=== PATIENT | female | born 1960 | race Two or more races ===

== ENCOUNTER 2024-10-16 10:13 | Inpatient (IN) | payer OTHER ==
[~2024-10-16] VITALS: Ht 160 cm; Wt 72.9 kg
--- NOTE | 2024-10-16 10:29 | ED.PDOC ---
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 Patient reports that she had started to experience 8/10 epigastric abdominal pain since this morning, but when getting into her car, she felt sudden palpitations with associated diaphoresis and a syncopal episode. Patient relays that a family member had caught her before she fell, then 911 was called. EMS states that the patient was diaphoretic on route to the ED and her heart rate gradually went down from the 70s to the 40s. Patient denies any chest pain, SOB, dizziness, N/V/D, or fever. Time Seen by MD: 10:24 Reviewed Notes: Nurses Notes, Medical Transcription Notes, Medications, Allergies Allergies: Coded Allergies: Codeine (Verified Allergy, Unknown, 10/16/24) Information Source: Patient, Emergency Med Personnel Mode of Arrival: EMS Severity: Moderate Timing: Hours Duration: Since onset Prehospital treatment: None Onset: At Rest Cardiac Risk Factors: None PE Risk Factors: None Associated Signs and Symptoms: Palpitations, Diaphoresis, Abdominal Pain, Syncope Past Medical History PAST MEDICAL HISTORY: Denies Surgical History: Denies all surgeries MAILING CLERK History: Denies all MAILING CLERK Hx Family History Family History: Reviewed,noncontributory to illness Social History Smoker: Non-Smoker Alcohol: Denies ETOH Use Drugs: Denies Drug Use Lives In: Home Constitutional: denies: chills, diaphoresis, fatigue, fever, malaise, sweats, weakness, others EENTM: denies: blurred vision, double vision, ear bleeding, ear discharge, ear drainage, ear pain, ear ringing, eye pain, eye redness, hearing loss, mouth pain, mouth swelling, nasal discharge, nose bleeding, nose congestion, nose pain, photophobia, tearing, throat pain, throat swelling, voice changes, others Respiratory: denies: cough, hemoptysis, orthopnea, SOB at rest, shortness of breath, SOB with excertion, stridor, wheezing, others Cardiovascular: reports: diaphoresis, palpitations, syncope; denies: chest pain, dizzy spells, Dyspnea on exertion, edema, irregular heart beat, left arm pain, lightheadedness, PND, others Gastrointestinal: reports: abdominal pain; denies: abdomen distended, blood streaked bowels, constipated, diarrhea, dysphagia, difficulty swallowing, hematemesis, melena, nausea, poor appetite, poor fluid intake, rectal bleeding, rectal pain, vomiting, others Genitourinary: denies: abnormal vagina bleeding, burning, dyspareunia, dysuria, flank pain, frequency, hematuria, incontinence, pain, , vagina discharge, urgency, others Neurological: denies: dizziness, fainting, headache, left sided numbness, left sided weakness, numbness, paresthesia, pre-existing deficit, right sided numbne ss, right sided weakness, seizure, speech problems, tingling, tremors, weakness, others Musculoskeletal: denies: back pain, gout, joint pain, joint swelling, muscle pain, muscle stiffness, neck pain, others Integumetry: denies: bruises, change in color, change in hair/nails, dryness, laceration, lesions, lumps, rash, wounds, others Allergic/Immunocompromised: denies: Difficulty Healing, Frequent Infections, Hives, Itching, others Hematologic/Lymphatic: denies: anemia, blood clots, easy bleeding, easy bruising, swollen glands, others Endocrine: denies: excessive hunger, excessive sweating, excessive thirst, excessive urination, flushing, intolerance to cold, intolerance to heat, unexplained weight gain, unexplained weight loss, others Psychiatric: denies: anxiety, bipolar disorder, depression, hopeless, panic disorder, schizophrenia, sleepless, suicidal, others All Other Systems: Reviewed and Negative Physical Exam General Appearance: No Apparent Distress, Normal, Other (Appears uncomfortable) HEENT: Normal ENT Inspection, Pharynx Normal, TMs Normal Neck: Full Range of Motion, Non-Tender, Normal, Normal Inspection Respiratory: Chest Non-Tender, Lungs Clear, No Accessory Muscle Use, No Respiratory Distress, Normal Breath Sounds Cardiovascular: No Edema, No JVD, No Murmur, No Gallop, Normal Peripheral Pulses, Other (Bradycardic) Breast Exam: Deferred Gastrointestinal: No Organomegaly, Non Tender, No Pulsatile Mass, Normal Bowel Sounds, Soft Genitalia: Deferred Pelvic: Deferred Rectal: Deferred Extremities: No calf tenderness, Normal capillary refill, Normal inspection, Normal range of motion, Non-tender, No pedal edema Musculoskeletal : Apperance: Normal Neurologic: Alert, letter of credit clerk II-XII nml as Tested, No Motor Deficits, Normal Affect, Normal Mood, No Sensory Deficits Cerebellar Function: Normal Reflexes: Normal Skin: Diaphoresis, Normal Color, Warm Lymphatic: No Adenopathy Was a procedure done? Was a procedure done?: No CP Differential Dx Differential Diagnosis: A-Flutter, Atrial Dysrhythmia, Electrolyte Disorder, MAT, NE, PAC's Differential Diagnosis: CHF, HTN Essential, HTN Accelerated Differential Diagnosis: Gastritis, Myocardial Infarction, Pericarditis X-Ray, Labs, Meds, VS Vital Signs Date Time Temp Pulse Resp B/P (MAP) Pulse Ox O2 Delivery O2 Flow Rate FiO2 10/16/24 11:14 64 10/16/24 10:19 97.9 59 18 118/54 (75) 96 97.9 10/16/24 10:14 46 Lab Test 10/16/24 13:02 10/16/24 12:05 10/16/24 11:39 Range/Units Troponin I High Sensitivity Pending 4 </=34 ng/L Urine Color Colorless Yellow Urine Clarity Clear Clear Urine pH 8.0 5.0-9.0 Urine Specific [place] 1.009 1.001-1.035 Urine Protein Negative Negative Urine Ketones Negative Negative Urine Blood Negative Negative /uL Urine Nitrite Negative Negative Urine Bilirubin Negative Negative Urine Urobilinogen Normal Negative mg/dL Urine Leukocyte Esterase Trace Negative /uL Urine RBC 1 0 - 4 /hpf Urine Microscopic WBC 2 0-5 /HPF Urine Squamous Epithelial Cells Few <5 /hpf Urine Bacteria None seen None Seen /hpf Urine Glucose Normal Normal mg/dL White Blood Count 9.2 4.4-10.8 10^3/uL Red Blood Count 4.29 4.0-5.20 10^6/uL Hemoglobin 12.6 12.2-16.2 g/dL Hematocrit 36.5 36.0-46.0 % Mean Corpuscular Volume 85.1 80.0-100.0 fL Mean Corpuscular Hemoglobin 29.4 28.0-32.0 pg Mean Corpuscular Hemoglobin Concent 34.5 32.0-36.0 g/dL Red Cell Distribution Width 13.5 11.8-14.3 % Platelet Count 283 140-450 10^3/uL Mean Platelet Volume 8.0 6.9-10.8 fL Neutrophils (%) (Auto) 78.5 37.0-80.0 % Lymphocytes (%) (Auto) 14.2 10.0-50.0 % Monocytes (%) (Auto) 6.5 0.0-12.0 % Eosinophils (%) (Auto) 0.5 0.0-7.0 % Basophils (%) (Auto) 0.3 0.0-2.0 % Neutrophils # (Auto) 7.2 1.6-8.6 10 ^3/uL Lymphocytes # (Auto) 1.3 0.4-5.4 10 ^3/uL Monocytes # (Auto) 0.6 0-1.3 10 ^3/uL Eosinophils # (Auto) 0.1 0-0.8 10 ^3/uL Basophils # (Auto) 0 0-0.2 10 ^3/uL Nucleated Red Blood Cells 0.2 % Sodium Level 147 H 136-145 mmol/L Potassium Level 3.5 3.5-5.1 mmol/L Chloride Level 107 98-107 mmol/L Carbon Dioxide Level 30 20-31 mmol/L Anion Gap 10 5-15 Blood Urea Nitrogen 17 9-23 mg/dL Creatinine 0.96 0.550-1.02 mg/dL Glomerular Filtration Rate Calc 66 >90 mL/min BUN/Creatinine Ratio 17.7 10.0-20.0 Serum Glucose 102 74-106 mg/dL Lactic Acid Level 1.3 0.4-2.0 mmol/L Calcium Level 9.7 8.7-10.4 mg/dL Current Medications Medications (Trade) Dose Ordered Sig/Anna Route Start Time Stop Time Status Last Admin Sodium Chloride 1,000 ml @ 1,000 mls/hr Q1H ONCE IV 10/16/24 10:30 10/16/24 11:29 DC 10/16/24 10:40 Time of 1ST Reevaluation: 11:19 Reevaluation 1ST: Unchanged Patient Education/Counseling: Diagnosis, Treatment Family Education/Counseling: No Family Present Additional Information Previous visits reviewed: None The following tests were ordered, and results were reviewed by me: Additional Information was gathered from interviewing the following independent historians: EMS I reviewed and agreed with the following test results read by other providers: None I discussed treatment and results with medical personnel and: patient Comprehensive systems review obtained and negative except for what is stated in the HPI. SEPSIS Sepsis Screen Physician Orders Chest Portable (10/16/24 10:17) Head Without Contrast (10/16/24 10:17) Blood Culture (10/16/24 10:17) Troponin-I Hs (10/16/24 11:17) Troponin-I Hs (10/16/24 13:17) Electrocardigram (10/16/24 11:17) Electrocardigram (10/16/24 13:17) Vital Signs Date Time Temp Pulse Resp B/P (MAP) Pulse Ox O2 Delivery O2 Flow Rate FiO2 10/16/24 11:14 64 10/16/24 10:19 97.9 59 18 118/54 (75) 96 97.9 10/16/24 10:14 46 Laboratory Tests Test 10/16/24 11:39 Lactic Acid Level 1.3 mmol/L (0.4-2.0) White Blood Count 9.2 10^3/uL (4.4-10.8) Medications Medications Dose Ordered Sig/Anna Route Start Time Stop Time Status Last Admin Dose Admin Sodium Chloride 1,000 ml @ 1,000 mls/hr Q1H ONCE IV 10/16/24 10:30 10/16/24 11:29 DC 10/16/24 10:40 Departure 1 Departure Time of Disposition: 13:16 (Patient presented with syncope today and should be admitted. Data: 1. I ordered and reviewed the result of at least 3 labs including a CBC, BMP, and troponin. 2. I independently interpreted the following tests: EKG which shows a sinus bradycardia and a chest x-ray which shows benign chest and a CT head which shows benign brain.Risk:This patient has a high risk of morbidity due to further diagnostic testing or treatment and may suffer from an acute cardiac, neurologic, or infectious disorder. Rationale: Patient should be admitted to the hospital for further management.) Impression: Primary Impression: Syncope and collapse Additional Impressions: Acute chest pain Shortness of breath Disposition: ADMITTED INPATIENT Admit to: Med Surg Condition: Guarded Critical Care Note Critical Care Time?: Yes Critical care comment: Symptomatic bradycardia Authorized and Performed by: Emely Mooney MD Total critical care time: Approximately 39 minutes Due to a high probability of clinically significant, life threatening deterioration, the patient required my highest level of preparedness to intervene emergently and I personally spent this critical care time directly and personally managing the patient. This critical care time included obtaining a history; examining the patient; pulse oximetry; ordering and review of studies; arranging urgent treatment with development of a management plan; evaluation of patient's response to treatment; frequent reassessment; and, discussions with other providers. This critical care time was performed to assess and manage the high probability of imminent, life-threatening deterioration that could result in multi-organ failure. It was exclusive of separately billable procedures and treating other patients and teaching time. Please see my other sections and the rest of the note for further information on patient assessment and treatment. Stability Stability form required: No Heart Score Heart Score: Heart Score Response (Comments) Value History Highly Suspicious 2 EKG Repolarization Disturb 1 Age >65 2 Risk Factors 1 or 2 risk factors 1 Troponin Normal limit 0 Total 6 I personally scribed for EMELY MOONEY MD ([email or web address]) on 10/16/24 at 10:29. Electronically submitted by Maurilio Betancourt ([email or web address]). EMELY MOONEY MD Oct 16, 2024 10:29
[2024-10-16 10:33] VITALS: PULSE 77; RESP 16; O2SAT 97
[2024-10-16] MEDS: SODIUM CHLORIDE 0.9% 1,000 ML IV ONE (10:40)
--- NOTE | 2024-10-16 10:59 | DVH ---
CHEST RADIOGRAPH Indication: syncope Technique: Single frontal view of the chest was obtained COMPARISON: None FINDINGS: Lines and Tubes: None Lungs: Clear Pleura: No effusion. No pneumothorax. Cardiomediastinal contours: Unremarkable Bones: Unremarkable IMPRESSION: No acute disease.
--- NOTE | 2024-10-16 11:01 | DVH ---
CT HEAD WITHOUT CONTRAST INDICATION: syncope EXAM DATE: 10/16/2024 10:32 AM COMPARISON: None RADIATION DOSE: CTDIvol: 56 mGy, DLP: 1006 mGy*cm PROCEDURE: CT scans of the head were obtained from the vertex to the skull base. Sagittal and coronal reconstructions were provided. All CT scans at this medical facility are performed using dose modulation techniques as appropriate t o a performed exam including the following: Automated exposure control was utilized; adjustment of th e MA and/or KV according to patient size; and use of iterative reconstruction technique. FINDINGS: There is sulcal and ventricular prominence. The brainshows normal morphology and ignacio-whi te matter differentiation, without intracranial hemorrhage, extra-axial fluid collection, mass effect or acute large vessel infarct. The ventricles are normal in size. The basal cisterns are patent. The skull and visible facial bones are intact. The paranasal sinuses, mastoid air cells and middle ear c avities are well-aerated. The soft tissues of the scalp are unremarkable. IMPRESSION: No acute intracranial abnormality.
--- NOTE | 2024-10-16 11:15 | ECG ---
[facility] Test Date: 2024-10-16 Test Time: 11:14:40 Pat Name: FORTUNATO RENE Department: ER Room: [address] [place] [address] Gender: F Director Of Accounting: GP : 1960 Requested By: EMELY SAAVEDRA Order Number: [id number] Reading MD: Melvin Gunter Measurements Intervals [place] Rate: 64 P: 46 GA: 151 QRS: 25 QRSD: 104 T: 65 QT: 420 QTc: 434 Interpretive Statements Sinus rhythm Electronically Signed On 10-16-2024 21:19:45 PDT by Melvin Gunter Please click the below link to view image of tracing.
[2024-10-16 12:14] LABS: Basophils # (auto) 0 10 ^3/uL (0-0.2); Basophils % (auto) 0.3 % (0.0-2.0); Eosinophils # (auto) 0.1 10 ^3/uL (0-0.8); Eosinophils % (auto) 0.5 % (0.0-7.0); Hematocrit 36.5 % (36.0-46.0); Hemoglobin 12.6 g/dL (12.2-16.2); Lymphocytes # (auto) 1.3 10 ^3/uL (0.4-5.4); Lymphocytes % (auto) 14.2 % (10.0-50.0); Mean Corpuscular Hemoglobin 29.4 pg (28.0-32.0); Mean Corpuscular Hgb Conc. 34.5 g/dL (32.0-36.0); Mean Corpuscular Volume 85.1 fL (80.0-100.0); Monocytes # (auto) 0.6 10 ^3/uL (0-1.3); Monocytes % (auto) 6.5 % (0.0-12.0); Neutrophils # (auto) 7.2 10 ^3/uL (1.6-8.6); Neutrophils % (auto) 78.5 % (37.0-80.0); Nucleated Red Blood Cells % 0.2 %; Platelet Count (auto) 283 10^3/uL (140-450); Red Blood Cells 4.29 10^6/uL (4.0-5.20); Red Cell Distribution Width 13.5 % (11.8-14.3); White Blood Cell 9.2 10^3/uL (4.4-10.8)
[2024-10-16 12:30] LABS: Anion Gap 10 (5-15)
[2024-10-16 12:31] LABS: Carbon Dioxide 30 mmol/L (20-31); Chloride 107 mmol/L (98-107); Potassium 3.5 mmol/L (3.5-5.1); Sodium 147 mmol/L (136-145)
[2024-10-16 12:34] LABS: Urine Bacteria None Seen /hpf (None Seen)
[2024-10-16 12:45] LABS: BUN/Creatinine Ratio 17.7 (10.0-20.0); Blood Urea Nitrogen 17 mg/dL (9-23); Calcium 9.7 mg/dL (8.7-10.4); Glucose 102 mg/dL (74-106)
[2024-10-16 12:55] LABS: Urine Blood Negative /uL (Negative); Urine Clarity Clear (Clear); Urine Color Colorless (Yellow); Urine Protein, UAD Negative (Negative); Urine Specific Gravity 1.009 (1.001-1.035); Urine Squamous Epithelial Cell FEW /hpf (<5); Urine Urobilinogen Normal (Negative); Urine WBC 2 /HPF (0-5)
[2024-10-16] MEDS ORDERED: DEXTROSE (50%) 50ML SYRG IV PRN (14:30)
[2024-10-16] MEDS ORDERED: MORPHINE SULFATE INJ 2 MG/ml SYRG IV PRN (14:30)
[2024-10-16] MEDS ORDERED: NITROGLYCERIN 0.4 MG SL TAB SL PRN (14:30)
[2024-10-16] MEDS ORDERED: ACETAMINOPHEN 325 MG TAB PO PRN ×2 (14:30→17:00)
[2024-10-16] MEDS ORDERED: ONDANSETRON HCL 4 MG/2 ML VIAL IV PRN (14:30)
[2024-10-16] MEDS ORDERED: NIFE1TAB30 PO (14:55)
--- NOTE | 2024-10-16 14:59 | DVHHP2 ---
History of Present Illness Reason for Visit: Syncope History of Present Illness Dahiana Shaw is a 64-year-old female with past medical history of hypertension, diabetes type 2, ulcers, cholecystectomy, and x3 who presents to the ED with syncope. Patient also reports of epigastric abdominal pain for 6 months. She also endorses that she recently traveled to [facility] on October 01 this year. Etelvina daughter at the bedside. Patient's daughter states that her mom and a neighbor were outside in the front yard when she told her neighbor that she was about to fall. She states that she fell and hit the right back side of her head on the floor. She recalls waking up and not knowing what happened. She also states that she saw her primary last month and was supposed to go with this Saturday to get results for her blood work. Patient also states that she walks without any DMEs. She denies any recent sick contacts, recent ingestion of spoiled food, chest pain, shortness of breath, fever, chills, dizziness, nausea, vomiting, or diarrhea. Cardiovascular: HTN GI: Other (Ulcers) Endocrine: Diabetes Past Surgical History: Cholecystectomy, Family History: None Smoke: No ALCOHOL: none Drugs: None Lives: with Family Domestic Violence: Neg Review of Systems Constitutional: Yes: Other (Syncope) Gastrointestinal: Abdominal Pain Allergies: Coded Allergies: Codeine (Verified Allergy, Unknown, 10/16/24) Exam Vital Signs Vital Signs Date Time Temp Pulse Resp B/P (MAP) Pulse Ox O2 Delivery O2 Flow Rate FiO2 10/16/24 13:24 82 10/16/24 10:33 98.3 15 129/54 (79) 98 98.3 General Appearance: Alert, Oriented X3, Cooperative, No acute distress HEENT: Atraumatic, PERRLA, EOMI, Mucous membr. moist/pink Respiratory: Clear to auscultation, Normal air movement Cardiovascular: Normal S1, Normal S2, No murmurs Abdominal: Normal bowel sounds, Soft Extremities: No clubbing, No cyanosis, No edema, Normal pulses Skin: No significant lesion Neuro: Normal speech, Strength at 5/5 X4 ext, Normal tone, Sensation intact Psych/Mental Status: Mental status NL, Mood NL Labs/Xrays Labs Test 10/16/24 13:02 10/16/24 12:05 10/16/24 11:39 Range/Units Troponin I High Sensitivity 4 </=34 ng/L Urine Color Colorless Yellow Urine Clarity Clear Clear Urine pH 8.0 5.0-9.0 Urine Specific [place] 1.009 1.001-1.035 Urine Protein Negative Negative Urine Ketones Negative Negative Urine Blood Negative Negative /uL Urine Nitrite Negative Negative Urine Bilirubin Negative Negative Urine Urobilinogen Normal Negative mg/dL Urine Leukocyte Esterase Trace Negative /uL Urine RBC 1 0 - 4 /hpf Urine Microscopic WBC 2 0-5 /HPF Urine Squamous Epithelial Cells Few <5 /hpf Urine Bacteria None seen None Seen /hpf Urine Glucose Normal Normal mg/dL White Blood Count 9.2 4.4-10.8 10^3/uL Red Blood Count 4.29 4.0-5.20 10^6/uL Hemoglobin 12.6 12.2-16.2 g/dL Hematocrit 36.5 36.0-46.0 % Mean Corpuscular Volume 85.1 80.0-100.0 fL Mean Corpuscular Hemoglobin 29.4 28.0-32.0 pg Mean Corpuscular Hemoglobin Concent 34.5 32.0-36.0 g/dL Red Cell Distribution Width 13.5 11.8-14.3 % Platelet Count 283 140-450 10^3/uL Mean Platelet Volume 8.0 6.9-10.8 fL Neutrophils (%) (Auto) 78.5 37.0-80.0 % Lymphocytes (%) (Auto) 14.2 10.0-50.0 % Monocytes (%) (Auto) 6.5 0.0-12.0 % Eosinophils (%) (Auto) 0.5 0.0-7.0 % Basophils (%) (Auto) 0.3 0.0-2.0 % Neutrophils # (Auto) 7.2 1.6-8.6 10 ^3/uL Lymphocytes # (Auto) 1.3 0.4-5.4 10 ^3/uL Monocytes # (Auto) 0.6 0-1.3 10 ^3/uL Eosinophils # (Auto) 0.1 0-0.8 10 ^3/uL Basophils # (Auto) 0 0-0.2 10 ^3/uL Nucleated Red Blood Cells 0.2 % Sodium Level 147 H 136-145 mmol/L Potassium Level 3.5 3.5-5.1 mmol/L Chloride Level 107 98-107 mmol/L Carbon Dioxide Level 30 20-31 mmol/L Anion Gap 10 5-15 Blood Urea Nitrogen 17 9-23 mg/dL Creatinine 0.96 0.550-1.02 mg/dL Glomerular Filtration Rate Calc 66 >90 mL/min BUN/Creatinine Ratio 17.7 10.0-20.0 Serum Glucose 102 74-106 mg/dL Lactic Acid Level 1.3 0.4-2.0 mmol/L Calcium Level 9.7 8.7-10.4 mg/dL EXAM: CT Abdomen and Pelvis Without Intravenous Contrast CLINICAL INDICATION: abd pain TECHNIQUE: Axial computed tomography images of the abdomen and pelvis without intravenous contrast. This CT exam was performed using one or more of the following dose reduction techniques: automated exposure control, adjustment of the mA and/or kV according to patient size, and/or use of iterative reconstruction technique. CONTRAST: RADIATION DOSE: CTDIvol = 13.97 mGy, DLP = 710.81 mGy-cm COMPARISON: None FINDINGS: LUNG BASES: Unremarkable. No mass. No consolidation. MEDIASTINUM: Small esophageal hiatal hernia. ABDOMEN: LIVER: Enlarged fatty liver. GALLBLADDER AND BILE DUCTS: Unremarkable. No calcified stones. No ductal dilation. PANCREAS: Unremarkable. No ductal dilation. SPLEEN: Unremarkable. No splenomegaly. ADRENALS: Unremarkable. No mass. KIDNEYS AND URETERS: No renal obstruction. STOMACH AND BOWEL: Fecal retention in the colon consistent with constipation. No obstruction. No mucosal thickening. PELVIS: APPENDIX: Normal appendix. BLADDER: Unremarkable. No stones. REPRODUCTIVE: Probable calcified uterine fibroid. ABDOMEN and PELVIS: INTRAPERITONEAL SPACE: Unremarkable. No free air. No significant fluid collection. BONES/JOINTS: Multilevel endplate degenerative changes and disc disease of the visualized spine. No acute fracture. No dislocation. SOFT TISSUES: Unremarkable. VASCULATURE: Unremarkable. No abdominal aortic aneurysm. LYMPH NODES: Unremarkable. No enlarged lymph nodes. OTHER FINDINGS: . IMPRESSION: 1. Normal appendix. 2. Small esophageal hiatal hernia. 3. Fecal retention in the colon consistent with constipation. CT HEAD WITHOUT CONTRAST INDICATION: syncope EXAM DATE: 10/16/2024 10:32 AM COMPARISON: None RADIATION DOSE: CTDIvol: 56 mGy, DLP: 1006 mGy*cm PROCEDURE: CT scans of the head were obtained from the vertex to the skull base. Sagittal and coronal reconstructions were provided. All CT scans at this medical facility are performed using dose modulation techniques as appropriate to a performed exam including the following: Automated exposure control was utilized; adjustment of the MA and/or KV according to patient size; and use of iterative reconstruction technique. FINDINGS: There is sulcal and ventricular prominence. The brainshows normal morphology and ignacio-white matter differentiation, without intracranial hemo rrhage, extra-axial fluid collection, mass effect or acute large vessel infarct. The ventricles are normal in size. The basal cisterns are patent. The skull and visible facial bones are intact. The paranasal sinuses, mastoid air cells and middle ear cavities are well-aerated. The soft tissues of the scalp are unremarkable. IMPRESSION: No acute intracranial abnormality. Assessment/Plan Assessment/Plan Assessment UTI Autonomic imbalance Abdominal pain x6 months Hypernatremia Small esophageal hiatal hernia Constipation History of hypertension History of diabetes type 2 History of gastric ulcers Plan Admit to [facility] Influenza test IV antibiotics-ceftriaxone NS 1 L given ED EKG Troponin noted negative x2 Blood cultures CT head noted Lactic level Chest x-ray noted UA Hemoglobin A1c ISS and Accu-Cheks CT abdomen and pelvis noted Orthostatics Ultrasound carotid Echo ordered UDS Bowel regimen Diet Home medications reconciled DVT prophylaxis-SCDs PUD prophylaxis-PPIs Discussed plan of care with patient, patient's daughter, and nurse Rounding hospitalist to consider Cardiology consult Plan discussed with: Patient, Daughter My Orders Orders - VINAYAK CHILDS Procedure Category Date Status Time Orthostatic Vital ORDERS 10/16/24 Verified Signs 14:16 Carotid Duplx W Color US 10/16/24 Verified DOP 14:16 Echo 2d Mode Cardiac US 10/16/24 Verified DOP 14:16 Drug Screen LAB 10/16/24 Verified 14:16 Admit ADMIT 10/16/24 Verified 14:16 Allergies ELIZABETH 10/16/24 Verified 14:16 Code Status CODE 10/16/24 Verified 14:16 Ondansetron Hcl PHA 10/16/24 Verified (Zofran) 14:30 Complete Blood Count LAB 10/17/24 Verified 04:00 Comprehensive LAB 10/17/24 Verified Metabolic Panel 04:00 Cardiac DIET 10/16/24 Verified Diet-2gna,Lofat,Lochol Dinner Acetaminophen Tablet PHA 10/16/24 Verified (Tylenol Tablet) 14:30 Sequential ELIZABETH 10/16/24 Verified Compression Device Nitroglycerin PHA 10/16/24 Verified Sublingual (Ntrostat 14:30 Morphine Sulfate PHA 10/16/24 Verified Injection 14:30 Stat Ekg For Chest [facility] 10/16/24 Verified Pain 14:16 Notify Md Of Changes [facility] 10/16/24 Verified From Base 14:16 Campus Supervisor For [facility] 10/16/24 Verified 24 Hours 14:16 Emergency Dysrhythmia [facility] 10/16/24 Verified Protocol 14:16 Rhythm Strips Once [facility] 10/16/24 Verified Every Shift 14:16 Oxygen By Nasal RT 10/16/24 Verified Cannula 14:16 Ceftriaxone Ivpb PHA 10/16/24 Verified Rocephin 14:30 Rapid Influenza A&B LAB 10/16/24 Verified 14:16 Ct Ab Pel Wo Con-No CT 10/16/24 Verified Oral Or Iv 14:16 Hemoglobin A1c LAB 10/16/24 Verified 14:16 Glucose Blood PHA 10/16/24 Verified (Accu-Chek Comfort 17:00 Mild Sliding Scale PHA 10/16/24 Verified 17:00 Dextrose 50% Syringe PHA 10/16/24 Verified 14:30 Date of Service: Oct 16, 2024 Billing Provider: VINAYAK CHILDS Common Visit Codes: [id number] INP/OBS CARE (HIGH) VINAYAK CHILDS COUNTER SUPPLY WORKER Oct 16, 2024 14:59
--- NOTE | 2024-10-16 15:33 | DVH ---
EXAM: CT Abdomen and Pelvis Without Intravenous Contrast CLINICAL INDICATION: abd pain TECHNIQUE: Axial computed tomography images of the abdomen and pelvis without intravenous contrast. This CT exam was performed using one or more of the following dose reduction techniques: automated exposure control, adjustment of the mA and/or kV according to patient size, and/or use of iterative r econstruction technique. CONTRAST: RADIATION DOSE: CTDIvol = 13.97 mGy, DLP = 710.81 mGy-cm COMPARISON: None FINDINGS: LUNG BASES: Unremarkable. No mass. No consolidation. MEDIASTINUM: Small esophageal hiatal hernia. ABDOMEN: LIVER: Enlarged fatty liver. GALLBLADDER AND BILE DUCTS: Unremarkable. No calcified stones. No ductal dilation. PANCREAS: Unremarkable. No ductal dilation. SPLEEN: Unremarkable. No splenomegaly. ADRENALS: Unremarkable. No mass. KIDNEYS AND URETERS: No renal obstruction. STOMACH AND BOWEL: Fecal retention in the colon consistent with constipation. No obstruction. No mucosal thickening. PELVIS: APPENDIX: Normal appendix. BLADDER: Unremarkable. No stones. REPRODUCTIVE: Probable calcified uterine fibroid. ABDOMEN and PELVIS: INTRAPERITONEAL SPACE: Unremarkable. No free air. No significant fluid collection. BONES/JOINTS: Multilevel endplate degenerative changes and disc disease of the visualized spine. N o acute fracture. No dislocation. SOFT TISSUES: Unremarkable. VASCULATURE: Unremarkable. No abdominal aortic aneurysm. LYMPH NODES: Unremarkable. No enlarged lymph nodes. OTHER FINDINGS: . IMPRESSION: 1. Normal appendix. 2. Small esophageal hiatal hernia. 3. Fecal retention in the colon consistent with constipation.
[2024-10-16] MEDS ORDERED: IBUPROFEN 600 MG TAB PO PRN (16:00)
[2024-10-16] MEDS ORDERED: IBUPROFEN 800 MG TAB PO PRN (16:00)
[2024-10-16] MEDS ORDERED: IBUPROFEN 400 MG TAB PO PRN (16:00)
[2024-10-16 16:39] LABS: Amphetamine Screen, Urine Neg (NEGATIVE); Barbiturate Scree,Urine Neg (NEGATIVE); Benzodiazephine Screen, Urine Neg (NEGATIVE); Cannabinoid Screen, Urine Neg (NEGATIVE); Cocaine Screen, Urine Neg (NEGATIVE); Opiate Scree,Urine Neg (NEGATIVE); Phencyclidine Screen, Urine Neg (NEGATIVE)
--- NOTE | 2024-10-16 16:43 | DVH ---
Carotid Duplex Date: 10/16/2024 04:16 PM Clinical History: syncope Comparison: None Technique: Duplex Doppler evaluation of the extracranial carotid and vertebral arteries including col or Doppler and spectral/pulsed waveform analysis was performed. Findings: RIGHT SIDE: The peak systolic velocities are 8 cm/s in the distal CCA and 135 cm/s in the proximal ICA.The ICA/CC A ratio is less than 2. The external carotid artery is patent with peak systolic velocity of 7 cm/s proximally. There is appropriate antegrade flow in the right vertebral artery. LEFT SIDE: The peak systolic velocities are 82 cm/s in the distal CCA and 107 cm/s in the proximal ICA.. The ICA /CCA ratio is less than 2. The external carotid artery is patent with peak systolic velocity of 111 cm/s proximally. There is appropriate antegrade flow in the left vertebral artery. IMPRESSION: 1. No hemodynamically significant stenosis noted in the right carotid system. 2. No hemodynamically significant stenosis noted in the left carotid system. 3. Reference: Radiology 2003; 229:[id number] HS:Y
[2024-10-16 16:51] LABS: Rapid Influenza A Negative (Negative); Rapid Influenza B Negative (Negative)
[2024-10-16] MEDS: InsuLIN REG 1unit/0.01ml Soln (100units/ml) SC SCH (17:00)
[2024-10-16] MEDS: cefTRIAXone 1GM/50ML D5W 50 ML IV SCH (17:15)
[2024-10-16] MEDS: PANTOPRAZOLE 40 MG/10 ML VIAL INJ IV SCH (17:15)
[2024-10-16] MEDS: ACCU-CHEK COMFORT CURVE STRIP VI SCH (17:29)
--- NOTE | 2024-10-16 19:17 | ECG ---
[facility] Test Date: 2024-10-16 Test Time: 13:24:01 Pat Name: FORTUNATO RENE Department: ED Room: [address] [place] [address] A Gender: F [employer] Production Technician: josephien : 1960 Requested By: EMELY SAAVEDRA Order Number: [id number] Reading MD: Melvin Gunter Measurements Intervals [place] Rate: 82 P: 66 MT: 137 QRS: 35 QRSD: 111 T: 83 QT: 385 QTc: 450 Interpretive Statements Sinus rhythm Ventricular premature complex Borderline T wave abnormalities Electronically Signed On 10-16-2024 21:20:07 PDT by Melvin Gunter Please click the below link to view image of tracing.
--- NOTE | 2024-10-16 20:18 | DVHSR ---
APPROVED REPORT EXAM: Two-dimensional and M-mode echocardiogram with Doppler and color Doppler. Blood Pressure: 129/54 mmHg INDICATION Syncope RISK FACTORS Obesity: Height: 5'3, Weight: 165 DIMENSIONS LVDd3.6 (3.8-5.7cm)LA (2D)3.4 (1.9-4.0cm)Aortic Root3.1 (2.0-3.7cm) LVDs2.3 (2.5-4.0cm)LA (MM) (1.9-4.0cm)Aortic Cusp Exc1.6 (1.5-2.0cm) EF (%) 60.0 (55-70%)Rt. Atrium3.6 (1.9-4.0cm)Asc. Aorta cm IVSd1.1 (0.7-1.1cm)RV (D) (1.8-2.4cm) PWd1.0 (0.7-1.1cm) Mitral Valve MitralMitral Stenosis E wave1.04m/sMV Mean GR.mmHg A wave0.96m/sMV Peak GR.93mmHg E/A ratio1.12D MVAcm2 DECEL [id number] 1/2 Timems Aortic Valve Aortic ValveAortic Stenosis V11.21m/Janet Mean GR.4mmHg V21.39m/Janet Peak GR.8mmHg LVOT Diameter2.0 (1.8-2.4cm)Doppler AVA2.73cm2 Pulmonic Valve V20.98m/s Tricuspid Valve TR Velocity2.59m/s [id number] Other Information Quality : Technically LimitedRhythm : Technically limited study due to patient position. Conclusion LVEF 55-60%, mild lvh. mild diastolic dysfunction No significant valve disease
[2024-10-16] MEDS: SENNA 8.6 MG TAB PO SCH (21:49)
[2024-10-16 23:56] VITALS: BP 161/71; PULSE 68; RESP 17; TEMP 98.4; O2SAT 95
[2024-10-17] VITALS (8 sets, daily range): BP systolic 119–161; BP diastolic 57–86; PULSE 50–68; RESP 16–20; TEMP 97.1–99.4; O2SAT 95–99
[2024-10-17 06:51] LABS: Basophils # (auto) 0 10 ^3/uL (0-0.2); Basophils % (auto) 0.5 % (0.0-2.0); Eosinophils # (auto) 0.1 10 ^3/uL (0-0.8); Eosinophils % (auto) 1.5 % (0.0-7.0); Hematocrit 38.1 % (36.0-46.0); Hemoglobin 13.2 g/dL (12.2-16.2); Lymphocytes # (auto) 2.2 10 ^3/uL (0.4-5.4); Lymphocytes % (auto) 34.6 % (10.0-50.0); Mean Corpuscular Hemoglobin 29.4 pg (28.0-32.0); Mean Corpuscular Hgb Conc. 34.5 g/dL (32.0-36.0); Mean Corpuscular Volume 85.3 fL (80.0-100.0); Monocytes # (auto) 0.5 10 ^3/uL (0-1.3); Monocytes % (auto) 8.5 % (0.0-12.0); Neutrophils # (auto) 3.5 10 ^3/uL (1.6-8.6); Neutrophils % (auto) 54.9 % (37.0-80.0); Platelet Count (auto) 297 10^3/uL (140-450); Red Blood Cells 4.47 10^6/uL (4.0-5.20); Red Cell Distribution Width 13.4 % (11.8-14.3); White Blood Cell 6.3 10^3/uL (4.4-10.8)
[2024-10-17 07:00] LABS: Albumin 4.4 g/dL (3.2-4.8); Anion Gap 10 (5-15); BUN/Creatinine Ratio 22.2 (10.0-20.0); Blood Urea Nitrogen 18 mg/dL (9-23); Calcium 9.6 mg/dL (8.7-10.4); Carbon Dioxide 28 mmol/L (20-31); Chloride 105 mmol/L (98-107); Glucose 84 mg/dL (74-106); Sodium 143 mmol/L (136-145); Total Protein 7.1 g/dL (5.7-8.2)
[2024-10-17 07:01] LABS: Alanine Aminotransferase 236 U/L (7-40); Alkaline Phosphatase 136 U/L (46-116); Aspartate Aminotransferase 211 U/L (<34); Bilirubin, Total 0.7 mg/dL (0.2-1.0); Potassium 3.2 mmol/L (3.5-5.1)
[2024-10-17] MEDS ORDERED: PATIENTS OWN MEDICATION (Nifedipine (Nifedipine Er) 1 TAB) PO SCH (10:00)
[2024-10-17] MEDS: POLYETHYLENE GLYCOL 17 GM PWDR PO SCH (10:49)
[2024-10-17] MEDS: NIFEdipine ER 30 MG TAB PO SCH (10:57)
[2024-10-17] MEDS: hydroCHLOROthiazide 25 MG TAB PO SCH (10:58)
[2024-10-17] MEDS: LOSARTAN POTASSIUM 50 MG TAB PO SCH (10:58)
--- NOTE | 2024-10-17 13:09 | DVHPN2 ---
Reviewed: Care Plan, H&P, Labs, Medications, Previous Orders, Radiology Changes from previous H/P or p: No Changes Gastrointestinal: Abdominal Pain Objective Vitals Vital Signs Date Time Temp Pulse Resp B/P (MAP) Pulse Ox O2 Delivery O2 Flow Rate FiO2 10/17/24 10:58 159/75 10/17/24 09:00 97.1 50 17 98 97.1 10/16/24 23:56 Room Air* 0 21 Intake/Output Intake and Output 10/17/24 07:00 Intake Total 1000 ml Balance 1000 ml Intake Oral 0 ml IV Total 1000 ml Medications Current Medications Medications Dose Ordered Sig/Anna Route Start Time Stop Time Status Last Admin Dose Admin Ondansetron HCl 4 mg Q4HP PRN IV 10/16/24 14:30 Nitroglycerin 0.4 mg Q5MINP PRN SL 10/16/24 14:30 Ceftriaxone Sodium 50 ml @ 100 mls/hr DAILY@09 IV 10/16/24 14:30 10/17/24 10:49 100 MLS/HR Diagnostic Test (Pha) 1 strip ACHS 10/16/24 17:00 10/17/24 11:30 1 STRIP Insulin Human Regular ACHS SC 10/16/24 17:00 Dextrose 50 ml UD PRN IV 10/16/24 14:30 Losartan Potassium 100 mg DAILY PO 10/17/24 10:00 10/17/24 10:58 100 MG Hydrochlorothiazide 12.5 mg DAILY PO 10/17/24 10:00 10/17/24 10:58 12.5 MG Pantoprazole Sodium 40 mg DAILY IV 10/16/24 15:00 10/17/24 10:49 40 MG Polyethylene Glycol 17 gm DAILY PO 10/17/24 10:00 10/17/24 10:49 17 GM Sennosides 8.6 mg HS PO 10/16/24 22:00 10/16/24 21:49 8.6 MG Patient Own Medication 1 tab DAILY PO 10/17/24 10:00 UNV Nifedipine 60 mg DAILY PO 10/17/24 10:00 10/17/24 10:57 60 MG Acetaminophen 650 mg Q4HP PRN PO 10/16/24 17:00 Hydralazine HCl 10 mg Q6HP PRN IV 10/17/24 02:45 Laboratory Results Laboratory Tests 10/17/24 06:10 Chemistry Test 10/17/24 06:10 Albumin 4.4 g/dL (3.2-4.8) Calcium Level 9.6 mg/dL (8.7-10.4) Total Protein 7.1 g/dL (5.7-8.2) LFT Test 10/17/24 06:10 Alanine Aminotransferase (ALT) 236 U/L (7-40) H Alkaline Phosphatase 136 U/L (46-116) H Aspartate Amino Transferase (AST) 211 U/L (<34) H Total Bilirubin 0.7 mg/dL (0.2-1.0) Urinalysis Test 10/16/24 12:05 Urine Color Colorless (Yellow) Urine Clarity Clear (Clear) Urine pH 8.0 (5.0-9.0) Urine Specific [place] 1.009 (1.001-1.035) Urine Protein Negative (Negative) Urine Ketones Negative (Negative) Urine Blood Negative /uL (Negative) Urine Nitrite Negative (Negative) Urine Bilirubin Negative (Negative) Urine Urobilinogen Normal mg/dL (Negative) Urine Leukocyte Esterase Trace /uL (Negative) Urine RBC 1 /hpf (0 - 4) Urine Microscopic WBC 2 /HPF (0-5) Urine Squamous Epithelial Cells Few /hpf (<5) Urine Bacteria None seen /hpf (None Seen) Urine Glucose Normal mg/dL (Normal) Microbiology Microbiology Date/Time Source Procedure Growth Status 10/16/24 11:39 Blood Blood Culture - Preliminary NO GROWTH AFTER 24 HOURS OF INCUBATION. Resulted Labs and/or images reviewed: Labs reviewed by me, Image(s) reviewed by me Assessment/Plan Assessment/Plan Syncope unknown etiology: CT head negative carotid ultrasound negative chest x- ray negative neurology consult Epigastric abdominal pain six-months: CT abdomen pelvis without contrast negative: Consult by GI Dr. José Miguel Randall Hypertension Diabetes Blood cultures negative Plan discussed with: Patient Date of Service: Oct 17, 2024 Billing Provider: MARTHA DAVIS MD Common Visit Codes: [id number] INP/OBS CARE(HIGH) MARTHA DAVIS MD Oct 17, 2024 13:09
[2024-10-18] VITALS (7 sets, daily range): BP systolic 122–147; BP diastolic 54–80; PULSE 54–68; RESP 15–19; TEMP 97.5–98.4; O2SAT 96–100
--- NOTE | 2024-10-18 12:00 | DVHPN2 ---
Reviewed: Care Plan, H&P, Labs, Medications, Previous Orders, Radiology Changes from previous H/P or p: No Changes Gastrointestinal: Abdominal Pain Objective Vitals Vital Signs Date Time Temp Pulse Resp B/P (MAP) Pulse Ox O2 Delivery O2 Flow Rate FiO2 10/18/24 09:53 122/56 10/18/24 09:00 98.1 61 17 100 98.1 10/17/24 20:00 Room Air* 0 21 Intake/Output Intake and Output 10/18/24 07:00 Intake Total 970 ml Output Total 0 ml Balance 970 ml Intake Oral 920 ml IV Total 50 ml Output Stool Total 0 ml # Voids 7 Medications Current Medications Medications Dose Ordered Sig/Anna Route Start Time Stop Time Status Last Admin Dose Admin Ondansetron HCl 4 mg Q4HP PRN IV 10/16/24 14:30 Nitroglycerin 0.4 mg Q5MINP PRN SL 10/16/24 14:30 Ceftriaxone Sodium 50 ml @ 100 mls/hr DAILY@09 IV 10/16/24 14:30 10/18/24 09:51 100 MLS/HR Diagnostic Test (Pha) 1 strip ACHS 10/16/24 17:00 10/18/24 07:19 1 STRIP Insulin Human Regular ACHS SC 10/16/24 17:00 Dextrose 50 ml UD PRN IV 10/16/24 14:30 Losartan Potassium 100 mg DAILY PO 10/17/24 10:00 10/17/24 10:58 100 MG Hydrochlorothiazide 12.5 mg DAILY PO 10/17/24 10:00 10/18/24 09:52 12.5 MG Pantoprazole Sodium 40 mg DAILY IV 10/16/24 15:00 10/18/24 09:52 40 MG Polyethylene Glycol 17 gm DAILY PO 10/17/24 10:00 10/18/24 09:51 17 GM Sennosides 8.6 mg HS PO 10/16/24 22:00 10/16/24 21:49 8.6 MG Patient Own Medication 1 tab DAILY PO 10/17/24 10:00 UNV Nifedipine 60 mg DAILY PO 10/17/24 10:00 10/17/24 10:57 60 MG Acetaminophen 650 mg Q4HP PRN PO 10/16/24 17:00 Hydralazine HCl 10 mg Q6HP PRN IV 10/17/24 02:45 Laboratory Results Laboratory Tests 10/17/24 06:10 Urinalysis Test 10/16/24 12:05 Urine Color Colorless (Yellow) Urine Clarity Clear (Clear) Urine pH 8.0 (5.0-9.0) Urine Specific [place] 1.009 (1.001-1.035) Urine Protein Negative (Negative) Urine Ketones Negative (Negative) Urine Blood Negative /uL (Negative) Urine Nitrite Negative (Negative) Urine Bilirubin Negative (Negative) Urine Urobilinogen Normal mg/dL (Negative) Urine Leukocyte Esterase Trace /uL (Negative) Urine RBC 1 /hpf (0 - 4) Urine Microscopic WBC 2 /HPF (0-5) Urine Squamous Epithelial Cells Few /hpf (<5) Urine Bacteria None seen /hpf (None Seen) Urine Glucose Normal mg/dL (Normal) Microbiology Microbiology Date/Time Source Procedure Growth Status 10/16/24 11:39 Blood Blood Culture - Preliminary NO GROWTH AFTER 24 HOURS OF INCUBATION. Resulted Labs and/or images reviewed: Labs reviewed by me, Image(s) reviewed by me Assessment/Plan Assessment/Plan Syncope unknown etiology: CT head negative carotid ultrasound negative chest x- ray negative neurology consult, echo 60 % ejection fraction cardiology consult. Epigastric abdominal pain six-months: CT abdomen pelvis without contrast negative: Consult by GI Dr. José Miguel Randall, EGD tomorrow Elevated liver enzymes History of cholecystectomy Hypertension Diabetes Blood cultures negative Plan discussed with: Patient My Orders Orders - MARTHA DAVIS MD Procedure Category Date Status Time * Gi Dvh Vice President Of Marketing CONS 10/17/24 Transmitted 13:02 * Neurology Consult CONS 10/17/24 Transmitted 13:09 Date of Service: Oct 18, 2024 Billing Provider: MARTHA DAVIS MD Common Visit Codes: [id number] INP/OBS CARE(HIGH) MARTHA DAVIS MD Oct 18, 2024 12:00
[2024-10-18] MEDS: ALPRAZolam 0.5 MG TAB PO SCH (13:14)
--- NOTE | 2024-10-18 13:47 | DVHINCON2 ---
Date Seen: Oct 18, [address] Jacobsen Reason for Consultation Syncope History of Present Illness A 64-year-old female with past medical history of hypertension, diabetes type 2, and seizures, presented to the emergency department with a chief complaint of syncope. The patient reports experiencing epigastric pain followed by palpitation and diaphoresis while outside, which preceded to the syncopal episode. Her family reports that she has had two similar episodes approximately four months ago while in [place]. On arrival, the patient's blood pressure was 118/over 54 mmHg, and 12 lead EKG showed normal sinus rhythm. Cardiac troponins were negative, and CT of the head was unremarkable. Lab work revealed mildly elevated liver enzymes slightly low potassium. An echocardiogram revealed EF 55-60%. The patient will be receiving IV fluids with normal saline and IV magnesium has been initiated. And magnesium level will be obtained. Orthostatic vital signs are being assessed, and a carotid ultrasound has been performed which ruled out significant carotid stenosis. Additionally TSH and lipid panel will be obtained to further evaluate for underlying metabolic or cardiovascular contributors. Past Medical History As stated in HPI Past Surgical History Denies Family History: Patient reports no known family medical history. Family History Reviewed, non-contributory to the management of this case. Social History The patient lives at home, denies smoking, alcohol or illicit drugs abuse. Allergies: Coded Allergies: Codeine (Verified Allergy, Unknown, 10/16/24) Home Meds Reported Medications Nifedipine (Nifedipine Er) 60 Mg Tab, 1 TAB PO DAILY 10/16/24 Current Medications Current Medications Medications (Trade) Dose Ordered Sig/Anna Route PRN Reason Start Time Stop Time Status Last Admin Alprazolam (Xanax Tablet) 1 mg TID PO 10/18/24 14:00 10/18/24 13:14 Review of Systems Constitutional: No fevers or chills reported. Positive for diaphoresis prior to syncopal SF. Ears, Nose, & Throat: No symptom reported Eyes: No symptom reported Neurological: Positive for transient loss of consciousness. No focal neurological deficits. Pulmonary/Respiratory: No shortness of breath or cough. Cardiovascular: Positive for palpitation. No chest pain at present. Gastrointestinal: Positive for epigastric pain. No nausea or vomiting. Genitourinary: No symptom reported Musculoskeletal: No symptom reported Skin: No symptom reported Psychiatric: No symptom reported Endocrine: No symptom reported Hemotologic/Lymphatic: No symptom reported Vital Signs Vital Signs Date Time Temp Pulse Resp B/P (MAP) Pulse Ox O2 Delivery O2 Flow Rate FiO2 10/18/24 09:53 122/56 10/18/24 09:00 98.1 61 17 100 98.1 10/17/24 20:00 Room Air* 0 21 Physical Exam INITIAL VITAL SIGNS: Reviewed by me GENERAL: Alert and interactive. No acute distress. HEAD: Head is normocephalic and atraumatic. EYES: EOMI, PERRL. No scleral icterus. No conjunctival injection. ENT: Moist mucous membranes. NECK: Supple, No masses, Full range of motion. RESPIRATORY: No tachypnea. Clear breath sounds bilaterally. No wheezing, rales, rhonchi. CV: Regular rate and rhythm. No murmurs, rubs, or gallops. GI/: Mild epigastric tenderness. No rebound or guarding. INTEGUMENTARY: Warm and dry. No obvious rashes. NEUROLOGIC: Alert and oriented. Face is symmetric. Speech is normal. Moves all extremities equally. Labs/Diagnostic Data Labs Test 10/18/24 12:09 10/18/24 11:24 10/17/24 06:10 10/16/24 15:42 Range/Units POC Glucose 86 70-106 mg/dl White Blood Count 6.3 # 4.4-10.8 10^3/uL Red Blood Count 4.47 4.0-5.20 10^6/uL Hemoglobin 13.2 12.2-16.2 g/dL Hematocrit 38.1 36.0-46.0 % Mean Corpuscular Volume 85.3 80.0-100.0 fL Mean Corpuscular Hemoglobin 29.4 28.0-32.0 pg Mean Corpuscular Hemoglobin Concent 34.5 32.0-36.0 g/dL Red Cell Distribution Width 13.4 11.8-14.3 % Platelet Count 297 140-450 10^3/uL Mean Platelet Volume 7.9 6.9-10.8 fL Neutrophils (%) (Auto) 54.9 37.0-80.0 % Lymphocytes (%) (Auto) 34.6 10.0-50.0 % Monocytes (%) (Auto) 8.5 0.0-12.0 % Eosinophils (%) (Auto) 1.5 0.0-7.0 % Basophils (%) (Auto) 0.5 0.0-2.0 % Neutrophils # (Auto) 3.5 1.6-8.6 10 ^3/uL Lymphocytes # (Auto) 2.2 0.4-5.4 10 ^3/uL Monocytes # (Auto) 0.5 0-1.3 10 ^3/uL Eosinophils # (Auto) 0.1 0-0.8 10 ^3/uL Basophils # (Auto) 0 0-0.2 10 ^3/uL Nucleated Red Blood Cells 0.0 % Sodium Level 143 136-145 mmol/L Potassium Level 3.2 L 3.5-5.1 mmol/L Chloride Level 105 98-107 mmol/L Carbon Dioxide Level 28 20-31 mmol/L Anion Gap 10 5-15 Blood Urea Nitrogen 18 9-23 mg/dL Creatinine 0.81 0.550-1.02 mg/dL Glomerular Filtration Rate Calc 81 >90 mL/min BUN/Creatinine Ratio 22.2 H 10.0-20.0 Serum Glucose 84 74-106 mg/dL Calcium Level 9.6 8.7-10.4 mg/dL Total Bilirubin 0.7 0.2-1.0 mg/dL Aspartate Amino Transferase (AST) 211 H <34 U/L Alanine Aminotransferase (ALT) 236 H 7-40 U/L Alkaline Phosphatase 136 H 46-116 U/L Total Protein 7.1 5.7-8.2 g/dL Albumin 4.4 3.2-4.8 g/dL Influenza Type A Antigen Negative Negative Influenza Type B Antigen Negative Negative Test 10/16/24 15:24 10/16/24 12:05 10/16/24 11:39 Range/Units Troponin I High Sensitivity 5 </=34 ng/L Urine Color Colorless Yellow Urine Clarity Clear Clear Urine pH 8.0 5.0-9.0 Urine Specific [place] 1.009 1.001-1.035 Urine Protein Negative Negative Urine Ketones Negative Negative Urine Blood Negative Negative /uL Urine Nitrite Negative Negative Urine Bilirubin Negative Negative Urine Urobilinogen Normal Negative mg/dL Urine Leukocyte Esterase Trace Negative /uL Urine RBC 1 0 - 4 /hpf Urine Microscopic WBC 2 0-5 /HPF Urine Squamous Epithelial Cells Few <5 /hpf Urine Bacteria None seen None Seen /hpf Urine Glucose Normal Normal mg/dL Urine Opiates Screen Neg NEGATIVE Urine Fentanyl Screen Neg NEGATIVE Urine Barbiturates Screen Neg NEGATIVE Urine Phencyclidine Screen Neg NEGATIVE Urine Amphetamines Screen Neg NEGATIVE Urine Benzodiazepines Screen Neg NEGATIVE Urine Cocaine Screen Neg NEGATIVE Urine Cannabinoids Screen Neg NEGATIVE Hemoglobin A1c 5.7 <5.7 % A1C Lactic Acid Level 1.3 0.4-2.0 mmol/L Microbiology Date/Time Source Procedure Growth Status 10/16/24 11:39 Blood Blood Culture - Preliminary NO GROWTH AFTER 48 HOURS OF INCUBATION. Resulted PROCEDURE(s): CXRP - CHEST PORTABLE REASON: syncope ORDER NUMBER(s): [id number], ACCESSION NUMBER(s): [id number] CHEST RADIOGRAPH Indication: syncope Technique: Single frontal view of the chest was obtained COMPARISON: None FINDINGS: Lines and Tubes: None Lungs: Clear Pleura: No effusion. No pneumothorax. Cardiomediastinal contours: Unremarkable Bones: Unremarkable IMPRESSION: No acute disease. Assessment Syncope and collapse, to rule out cardiac etiology Carotid stenosis, ruled out Hypertension Diabetes type 2 History of seizures Plan/Recommendation (Dr. Clinton ): The patient will continue to be monitored on cardiac telemetry given her presentation with syncope and prior similar episodes. An echocardiogram revealed a left ventricular ejection fraction of 55-60%, mild left ventricular hypertrophy, and evidence of mild diastolic dysfunction. Orthostatic vital signs will be obtained to assess for postural hypotension. Carotid ultrasound has been completed and showed no significant stenosis. She is receiving intravenous normal saline for hydration, and intravenous magnesium has been initiated due to a suspected deficiency. Serum magnesium levels have been sent for confirmation. Additional labs including TSH and lipid panel have been ordered to assess for potential metabolic or in the green contributors. Neurology has been consulted given her history of seizures and recurrent syncopal episodes. This medical document was created using an electronic medical record system with voice recognition software and computerized dictation system. Although this document has been carefully reviewed, there might still be some phonetic and typographical errors. Occasional wrong-word or ``sound-alike substitutions may have occurred due to the inherent limitations of voice recognition software. These areas are purely typographical due to imperfections of the software programs and do not reflect any compromise in the patient's medical care. Please read the chart carefully and recognize, using context, where these substitutions have occurred. Plan discussed with: Patient Plan discussed with: Patient NYHA Physical activity limitations: NA Date of Service: Oct 18, 2024 Billing Provider: DOMI CLINTON MD Cardiology Common Codes: CONSULT ONLY Cardiology Consultation Codes: [id number] CONSULT <45MIN [facility] Oct 18, 2024 13:47
[2024-10-18 13:56] LABS: Magnesium 1.9 mg/dL (1.6-2.6)
[2024-10-18] MEDS: MAGNESIUM SULFATE 1GM/100ML 100 ML IV ONE (15:01)
[2024-10-18] MEDS: SODIUM CHLORIDE 0.9% 1,000 ML IV SCH (15:01)
--- NOTE | 2024-10-18 16:00 | MEDREC ---
[facility] ASP Intervention Section I [facility] ASP Intervention: Review courses of therapy (PLEASE CONSIDER D/C ANTIBIOTIC IN ABSENCE OF BACTERIAL INFECTION) TAWNYA KIM PHARMACIST Oct 18, 2024 15:59
--- NOTE | 2024-10-18 16:00 | DVHINCON2 ---
Date of service: Oct 18, 2024 Referring Physician Epigastric pain Reason for Consultation Epigastric pain History of Present Illness A 64-year-old female with past medical history of hypertension, diabetes type 2, and seizures, presented to the emergency department with a chief complaint of syncope. The patient reports experiencing epigastric pain followed by palpitation and diaphoresis while outside, which preceded to the syncopal episode. Her family reports that she has had two similar episodes approximately four months ago while in [place]. She was told by her physicians in [place] she might have ulcer disease. Patient has not had a prior endoscopy. Family at bedside is requesting that I do endoscopy. Patient is complain of some pain in the back of the head however her CT of the head was negative. Cardiac troponins were negative. Patient's potassium is slightly low and mild elevation liver enzymes. Her echocardiogram shows an ejection fraction of 55-60%. Patient is otherwise stable at this time and she reports no GI bleeding. On arrival, the patient's blood pressure was 118/over 54 mmHg, and 12 lead EKG showed normal sinus rhythm. Cardiac troponins were negative, and CT of the head was unremarkable. Carotid ultrasound has been performed which ruled out significant carotid stenosis. Additionally TSH and lipid panel will be obtained to further evaluate for underlying metabolic or cardiovascular contributors. Past Medical History See HPI Past Surgical History Cholecystectomy x3 Family History: Patient reports no known family medical history. Allergies: Coded Allergies: Codeine (Verified Allergy, Unknown, 10/16/24) Home Meds Reported Medications Nifedipine (Nifedipine Er) 60 Mg Tab, 1 TAB PO DAILY 10/16/24 Current Medications Current Medications Medications (Trade) Dose Ordered Sig/Anna Route PRN Reason Start Time Stop Time Status Last Admin Alprazolam (Xanax Tablet) 1 mg TID PO 10/18/24 14:00 10/18/24 13:14 Sodium Chloride 1,000 ml @ 75 mls/hr [id number] IV 10/18/24 13:30 10/18/24 15:01 Vital Signs Vital Signs Date Time Temp Pulse Resp B/P (MAP) Pulse Ox O2 Delivery O2 Flow Rate FiO2 10/18/24 13:00 97.8 57 16 147/69 (95) 96 97.8 10/17/24 20:00 Room Air* 0 21 Physical Exam GENERAL: Alert and interactive. No acute distress. HEAD: Head is normocephalic and atraumatic. EYES: EOMI, PERRL. No scleral icterus. No conjunctival injection. ENT: Moist mucous membranes. NECK: Supple, No masses, Full range of motion. RESPIRATORY: No tachypnea. Clear breath sounds bilaterally. No wheezing, rales, rhonchi. CV: Regular rate and rhythm. No murmurs, rubs, or gallops. GI/: Mild epigastric tenderness. No rebound or guarding. INTEGUMENTARY: Warm and dry. No obvious rashes. NEUROLOGIC: Alert and oriented. Face is symmetric. Speech is normal. Moves all extremities equally. Labs/Diagnostic Data Labs Test 10/18/24 12:09 10/18/24 11:24 10/17/24 06:10 10/16/24 15:42 Range/Units POC Glucose 86 70-106 mg/dl Magnesium Level 1.9 1.6-2.6 mg/dL Triglycerides Level 108 < 150 mg/dL Cholesterol Level 175 < 200 mg/dL LDL Cholesterol 120 H < 100 mg/dL HDL Cholesterol 45 40-59 mg/dL Thyroid Stimulating Hormone (TSH) 1.40 0.55-4.78 uIU/mL White Blood Count 6.3 # 4.4-10.8 10^3/uL Red Blood Count 4.47 4.0-5.20 10^6/uL Hemoglobin 13.2 12.2-16.2 g/dL Hematocrit 38.1 36.0-46.0 % Mean Corpuscular Volume 85.3 80.0-100.0 fL Mean Corpuscular Hemoglobin 29.4 28.0-32.0 pg Mean Corpuscular Hemoglobin Concent 34.5 32.0-36.0 g/dL Red Cell Distribution Width 13.4 11.8-14.3 % Platelet Count 297 140-450 10^3/uL Mean Platelet Volume 7.9 6.9-10.8 fL Neutrophils (%) (Auto) 54.9 37.0-80.0 % Lymphocytes (%) (Auto) 34.6 10.0-50.0 % Monocytes (%) (Auto) 8.5 0.0-12.0 % Eosinophils (%) (Auto) 1.5 0.0-7.0 % Basophils (%) (Auto) 0.5 0.0-2.0 % Neutrophils # (Auto) 3.5 1.6-8.6 10 ^3/uL Lymphocytes # (Auto) 2.2 0.4-5.4 10 ^3/uL Monocytes # (Auto) 0.5 0-1.3 10 ^3/uL Eosinophils # (Auto) 0.1 0-0.8 10 ^3/uL Basophils # (Auto) 0 0-0.2 10 ^3/uL Nucleated Red Blood Cells 0.0 % Sodium Level 143 136-145 mmol/L Potassium Level 3.2 L 3.5-5.1 mmol/L Chloride Level 105 98-107 mmol/L Carbon Dioxide Level 28 20-31 mmol/L Anion Gap 10 5-15 Blood Urea Nitrogen 18 9-23 mg/dL Creatinine 0.81 0.550-1.02 mg/dL Glomerular Filtration Rate Calc 81 >90 mL/min BUN/Creatinine Ratio 22.2 H 10.0-20.0 Serum Glucose 84 74-106 mg/dL Calcium Level 9.6 8.7-10.4 mg/dL Total Bilirubin 0.7 0.2-1.0 mg/dL Aspartate Amino Transferase (AST) 211 H <34 U/L Alanine Aminotransferase (ALT) 236 H 7-40 U/L Alkaline Phosphatase 136 H 46-116 U/L Total Protein 7.1 5.7-8.2 g/dL Albumin 4.4 3.2-4.8 g/dL Influenza Type A Antigen Negative Negative Influenza Type B Antigen Negative Negative Test 10/16/24 15:24 10/16/24 12:05 10/16/24 11:39 Range/Units Troponin I High Sensitivity 5 </=34 ng/L Urine Color Colorless Yellow Urine Clarity Clear Clear Urine pH 8.0 5.0-9.0 Urine Specific [place] 1.009 1.001-1.035 Urine Protein Negative Negative Urine Ketones Negative Negative Urine Blood Negative Negative /uL Urine Nitrite Negative Negative Urine Bilirubin Negative Negative Urine Urobilinogen Normal Negative mg/dL Urine Leukocyte Esterase Trace Negative /uL Urine RBC 1 0 - 4 /hpf Urine Microscopic WBC 2 0-5 /HPF Urine Squamous Epithelial Cells Few <5 /hpf Urine Bacteria None seen None Seen /hpf Urine Glucose Normal Normal mg/dL Urine Opiates Screen Neg NEGATIVE Urine Fentanyl Screen Neg NEGATIVE Urine Barbiturates Screen Neg NEGATIVE Urine Phencyclidine Screen Neg NEGATIVE Urine Amphetamines Screen Neg NEGATIVE Urine Benzodiazepines Screen Neg NEGATIVE Urine Cocaine Screen Neg NEGATIVE Urine Cannabinoids Screen Neg NEGATIVE Hemoglobin A1c 5.7 <5.7 % A1C Lactic Acid Level 1.3 0.4-2.0 mmol/L Microbiology Date/Time Source Procedure Growth Status 10/16/24 11:39 Blood Blood Culture - Preliminary NO GROWTH AFTER 48 HOURS OF INCU[address]ATION. Resulted CT SCAN ABD PELVIS IMPRESSION: 1. Normal appendix. 2. Small esophageal hiatal hernia. 3. Fecal retention in the colon consistent with constipation. Problems(with codes): (1) Epigastric pain (2) Syncope and collapse (3) Shortness of breath (4) Elevated liver enzymes Plan/Recommendation Plan I will tentatively plan for an endoscopy on 10/19/2024 if cleared by Cardiology Protonix 40 mg IV q.12 hours Carafate 1 g p.o. twice a day Continue to monitor labs especially her liver enzymes ; consider MRCP, check hepatitis panel and MADELIN Differential diagnosis could be possible sphincter of Oddi dysfunction or passage of gallbladder sludge but her bilirubin level is normal at this time Plan discussed with: Patient, Son DAGO MERCEDES MD Oct 18, 2024 16:00
--- NOTE | 2024-10-18 17:27 | DVH ---
ABDOMINAL ULTRASOUND CLINICAL HISTORY: elevated liver tests TECHNIQUE: Multiple grayscale and color Doppler ultrasound images were obtained of the abdomen. WID: COMPARISON: CT abdomen and pelvis from 10/24/2024 FINDINGS: Liver and Biliary System: Homogeneous echotexture, normal size measuring 13.8 cm. No focal hepatic observations. No intrahepatic bile duct dilatation. The common duct measures 0.5 cm at the sheldon h epatis. The gallbladder is surgically absent.. Pancreas: Visualized portions are unremarkable. Kidneys: The right kidney is 8.5 cm . No hydronephrosis, increased echogenicity, shadowing stone, o r focal lesion. IMPRESSION: Prior cholecystectomy without biliary ductal dilatation.
--- NOTE | 2024-10-18 23:33 | DVHINCON2 ---
Date Seen: Oct 18, [address] Jacobsen Reason for Consultation Syncope History of Present Illness This is a 64-year-old female with a past medical history of hypertension, diabetes type 2, and seizures, presented to the emergency department with complaint of syncope. Patient reports experiencing epigastric pain followed by heart palpitations and diaphoresis while outside, which preceded to the syncopal episode. Patient's family reports that she has had two similar episodes approximately four months ago while in [place]. On arrival, the patient's blood pressure was 118/over 54 mmHg, and 12 lead EKG showed normal sinus rhythm. Cardiac troponins were negative, and CT of the head was unremarkable. Lab work revealed mildly elevated liver enzymes slightly low potassium. An echocardiogram revealed EF 55-60%. The patient will be receiving IV fluids with normal saline and IV magnesium has been initiated. And magnesium level will be obtained. Orthostatic vital signs are being assessed, and a carotid ultrasound has been performed which ruled out significant carotid stenosis. Additionally TSH and lipid panel will be obtained to further evaluate for underlying metabolic or cardiovascular contributors. Past Medical History As stated in HPI Past Surgical History Denies Family History: Patient reports no known family medical history. Allergies: Coded Allergies: Codeine (Verified Allergy, Unknown, 10/16/24) Home Meds Reported Medications Nifedipine (Nifedipine Er) 60 Mg Tab, 1 TAB PO DAILY 10/16/24 Current Medications Current Medications Medications (Trade) Dose Ordered Sig/Anna Route PRN Reason Start Time Stop Time Status Last Admin Alprazolam (Xanax Tablet) 1 mg TID PO 10/18/24 14:00 10/18/24 13:14 Sodium Chloride 1,000 ml @ 75 mls/hr [id number] IV 10/18/24 13:30 Review of Systems Constitutional: No fevers or chills reported. Positive for diaphoresis prior to syncopal SF. Ears, Nose, & Throat: No symptom reported Eyes: No symptom reported Neurological: Positive for transient loss of consciousness. No focal neurological deficits. Pulmonary/Respiratory: No shortness of breath or cough. Cardiovascular: Positive for palpitation. No chest pain at present. Gastrointestinal: Positive for epigastric pain. No nausea or vomiting. Genitourinary: No symptom reported Musculoskeletal: No symptom reported Skin: No symptom reported Psychiatric: No symptom reported Endocrine: No symptom reported Hemotologic/Lymphatic: No symptom reported Vital Signs Vital Signs Date Time Temp Pulse Resp B/P (MAP) Pulse Ox O2 Delivery O2 Flow Rate FiO2 10/18/24 09:53 122/56 10/18/24 09:00 98.1 61 17 100 98.1 10/17/24 20:00 Room Air* 0 21 Physical Exam GENERAL: Alert and oriented x 3. No acute distress. EYES: PERRL, EOMI. Anicteric. HENT: Moist mucous membranes. LUNGS: Clear to auscultation bilaterally. CARDIOVASCULAR: Regular rate and rhythm. ABDOMEN: Soft, epigastric TTP. EXTREMITIES: No edema. NEUROLOGIC: No focal neurological deficits. SKIN: Warm, dry. Labs/Diagnostic Data Labs Test 10/18/24 12:09 10/18/24 11:24 10/17/24 06:10 10/16/24 15:42 Range/Units POC Glucose 86 70-106 mg/dl Magnesium Level 1.9 1.6-2.6 mg/dL Triglycerides Level 108 < 150 mg/dL Cholesterol Level 175 < 200 mg/dL LDL Cholesterol 120 H < 100 mg/dL HDL Cholesterol 45 40-59 mg/dL Thyroid Stimulating Hormone (TSH) 1.40 0.55-4.78 uIU/mL White Blood Count 6.3 # 4.4-10.8 10^3/uL Red Blood Count 4.47 4.0-5.20 10^6/uL Hemoglobin 13.2 12.2-16.2 g/dL Hematocrit 38.1 36.0-46.0 % Mean Corpuscular Volume 85.3 80.0-100.0 fL Mean Corpuscular Hemoglobin 29.4 28.0-32.0 pg Mean Corpuscular Hemoglobin Concent 34.5 32.0-36.0 g/dL Red Cell Distribution Width 13.4 11.8-14.3 % Platelet Count 297 140-450 10^3/uL Mean Platelet Volume 7.9 6.9-10.8 fL Neutrophils (%) (Auto) 54.9 37.0-80.0 % Lymphocytes (%) (Auto) 34.6 10.0-50.0 % Monocytes (%) (Auto) 8.5 0.0-12.0 % Eosinophils (%) (Auto) 1.5 0.0-7.0 % Basophils (%) (Auto) 0.5 0.0-2.0 % Neutrophils # (Auto) 3.5 1.6-8.6 10 ^3/uL Lymphocytes # (Auto) 2.2 0.4-5.4 10 ^3/uL Monocytes # (Auto) 0.5 0-1.3 10 ^3/uL Eosinophils # (Auto) 0.1 0-0.8 10 ^3/uL Basophils # (Auto) 0 0-0.2 10 ^3/uL Nucleated Red Blood Cells 0.0 % Sodium Level 143 136-145 mmol/L Potassium Level 3.2 L 3.5-5.1 mmol/L Chloride Level 105 98-107 mmol/L Carbon Dioxide Level 28 20-31 mmol/L Anion Gap 10 5-15 Blood Urea Nitrogen 18 9-23 mg/dL Creatinine 0.81 0.550-1.02 mg/dL Glomerular Filtration Rate Calc 81 >90 mL/min BUN/Creatinine Ratio 22.2 H 10.0-20.0 Serum Glucose 84 74-106 mg/dL Calcium Level 9.6 8.7-10.4 mg/dL Total Bilirubin 0.7 0.2-1.0 mg/dL Aspartate Amino Transferase (AST) 211 H <34 U/L Alanine Aminotransferase (ALT) 236 H 7-40 U/L Alkaline Phosphatase 136 H 46-116 U/L Total Protein 7.1 5.7-8.2 g/dL Albumin 4.4 3.2-4.8 g/dL Influenza Type A Antigen Negative Negative Influenza Type B Antigen Negative Negative Test 10/16/24 15:24 10/16/24 12:05 10/16/24 11:39 Range/Units Troponin I High Sensitivity 5 </=34 ng/L Urine Color Colorless Yellow Urine Clarity Clear Clear Urine pH 8.0 5.0-9.0 Urine Specific [place] 1.009 1.001-1.035 Urine Protein Negative Negative Urine Ketones Negative Negative Urine Blood Negative Negative /uL Urine Nitrite Negative Negative Urine Bilirubin Negative Negative Urine Urobilinogen Normal Negative mg/dL Urine Leukocyte Esterase Trace Negative /uL Urine RBC 1 0 - 4 /hpf Urine Microscopic WBC 2 0-5 /HPF Urine Squamous Epithelial Cells Few <5 /hpf Urine Bacteria None seen None Seen /hpf Urine Glucose Normal Normal mg/dL Urine Opiates Screen Neg NEGATIVE Urine Fentanyl Screen Neg NEGATIVE Urine Barbiturates Screen Neg NEGATIVE Urine Phencyclidine Screen Neg NEGATIVE Urine Amphetamines Screen Neg NEGATIVE Urine Benzodiazepines Screen Neg NEGATIVE Urine Cocaine Screen Neg NEGATIVE Urine Cannabinoids Screen Neg NEGATIVE Hemoglobin A1c 5.7 <5.7 % A1C Lactic Acid Level 1.3 0.4-2.0 mmol/L Microbiology Date/Time Source Procedure Growth Status 10/16/24 11:39 Blood Blood Culture - Preliminary NO GROWTH AFTER 48 HOURS OF INCUBATION. Resulted Assessment Syncope and collapse, to rule out cardiac etiology. Carotid stenosis, ruled out. Hypertension. Diabetes type 2. History of seizures. Plan/Recommendation I agree with your ongoing assessment and care of plan. Patient has been seen by Marion Burden NP on my behalf, her and I discussed the plan with the patient. The patient will continue to be monitored on cardiac telemetry given her presentation with syncope and prior similar episodes. An echocardiogram revealed a left ventricular ejection fraction of 55-60%, mild left ventricular hypertrophy, and evidence of mild diastolic dysfunction. Orthostatic vital signs will be obtained to assess for postural hypotension. Carotid ultrasound has been completed and showed no significant stenosis. She is receiving intravenous normal saline for hydration, and intravenous magnesium has been initiated due to a suspected deficiency. Serum magnesium levels have been sent for confirmation. Additional labs including TSH and lipid panel have been ordered to assess for potential metabolic or in the green contributors. Neurology has been consulted given her history of seizures and recurrent syncopal episodes. Additional plan as per the hospital course. Plan discussed with: Patient NYHA Physical activity limitations: NA Date of Service: Oct 18, 2024 Billing Provider: DOMI CLINTON MD Cardiology Common Codes: 92437-UJDTWPT INP/OBS CARE (High) Cardiology Consultation Codes: [id number] CONSULT <45MIN DOMI CLINTON MD Oct 18, 2024 14:34
[2024-10-19] VITALS (7 sets, daily range): BP systolic 110–155; BP diastolic 56–77; PULSE 52–84; RESP 13–19; TEMP 97.4–98.3; O2SAT 95–100
[2024-10-19 06:36] LABS: Basophils # (auto) 0 10 ^3/uL (0-0.2); Basophils % (auto) 0.4 % (0.0-2.0); Eosinophils # (auto) 0.2 10 ^3/uL (0-0.8); Eosinophils % (auto) 2.9 % (0.0-7.0); Hemoglobin 12.6 g/dL (12.2-16.2); Lymphocytes # (auto) 2.9 10 ^3/uL (0.4-5.4); Lymphocytes % (auto) 45.7 % (10.0-50.0); Mean Corpuscular Hemoglobin 29.5 pg (28.0-32.0); Mean Corpuscular Hgb Conc. 35.1 g/dL (32.0-36.0); Mean Corpuscular Volume 84.2 fL (80.0-100.0); Monocytes # (auto) 0.6 10 ^3/uL (0-1.3); Monocytes % (auto) 9.2 % (0.0-12.0); Neutrophils # (auto) 2.6 10 ^3/uL (1.6-8.6); Neutrophils % (auto) 41.8 % (37.0-80.0); Nucleated Red Blood Cells % 0.1 %; Platelet Count (auto) 295 10^3/uL (140-450); Red Blood Cells 4.27 10^6/uL (4.0-5.20); Red Cell Distribution Width 13.5 % (11.8-14.3); White Blood Cell 6.3 10^3/uL (4.4-10.8)
[2024-10-19 06:47] LABS: INR 1.03 (0.9-1.15); Partial Thromboplastin Time 28.2 SEC (24.5-34.5); Prothrombin Time 10.9 sec (9.3-11.8)
[2024-10-19 06:48] LABS: Albumin 4.1 g/dL (3.2-4.8); Alkaline Phosphatase 113 U/L (46-116); Anion Gap 9 (5-15); BUN/Creatinine Ratio 18.6 (10.0-20.0); Bilirubin, Total 0.5 mg/dL (0.2-1.0); Blood Urea Nitrogen 19 mg/dL (9-23); Carbon Dioxide 29 mmol/L (20-31); Chloride 105 mmol/L (98-107); Glucose 79 mg/dL (74-106); Potassium 3.6 mmol/L (3.5-5.1); Sodium 143 mmol/L (136-145); Total Protein 6.7 g/dL (5.7-8.2)
[2024-10-19 06:49] LABS: Alanine Aminotransferase 110 U/L (7-40); Aspartate Aminotransferase 56 U/L (<34)
[2024-10-19 10:28] LABS: Hepatitis B Surface Antigen Negative (Negative)
[2024-10-19 10:30] LABS: Hepatitis C Antibody Negative (Negative)
[2024-10-19] MEDS: hydrALAZINE HCL 20 MG/ML VL IV PRN (12:21)
--- NOTE | 2024-10-19 12:23 | ECG ---
[facility] Test Date: 2024-10-16 Test Time: 10:14:25 Pat Name: FORTUNATO RENE Department: ED Room: 0291 B Gender: F Commissary Assistant: josephine : 1960 Requested By: EMELY SAAVEDRA Order Number: [id number] Reading MD: Melvin Gunter Measurements Intervals [place] Rate: 46 P: 32 VT: 137 QRS: 32 QRSD: 101 T: 62 QT: 451 QTc: 395 Interpretive Statements Sinus bradycardia Borderline ST depression, lateral leads Baseline wander in lead(s) I,II,III,aVL,aVF,V1,V3,V4,V5,V6 Electronically Signed On 10-20-2024 22:33:25 PDT by Melvin Gunter Please click the below link to view image of tracing.
[2024-10-19] MEDS ORDERED: FLUMAZENIL 0.1 MG/ML INJ 10ML MDV IV ONE (14:20)
[2024-10-19] MEDS ORDERED: NALOXONE HCL 0.4 MG/ML VIAL ONE (14:20)
[2024-10-19] MEDS ORDERED: SODIUM CHLORIDE LOCK 10 ML ONE (14:20)
[2024-10-19] MEDS: LIDOCAINE VISCOUS 2% 15ML UD ONE (14:27)
[2024-10-19] MEDS: diphenhdrAMINE HCL 50 MG/1 ML VL ONE (14:29)
[2024-10-19] MEDS: MIDAZOLAM HCL 5 MG/ML-1ML VIAL ONE (14:29)
[2024-10-19] MEDS: fentaNYL CITRATE 100 MCG/2 ML VL ONE (14:29)
--- NOTE | 2024-10-19 14:42 | DVHPN2 ---
Reviewed: Care Plan, H&P, Labs, Medications, Previous Orders, Radiology Changes from previous H/P or p: No Changes Gastrointestinal: Abdominal Pain Objective Vitals Vital Signs Date Time Temp Pulse Resp B/P (MAP) Pulse Ox O2 Delivery O2 Flow Rate FiO2 10/19/24 13:15 97.5 84 16 155/61 (92) 100 97.5 10/19/24 08:00 Room Air* 0 21 Intake/Output Intake and Output 10/19/24 07:00 Intake Total 1500 ml Balance 1500 ml Intake Oral 450 ml IV Total 1050 ml # Voids 3 Medications Current Medications Medications Dose Ordered Sig/Anna Route Start Time Stop Time Status Last Admin Dose Admin Ondansetron HCl 4 mg Q4HP PRN IV 10/16/24 14:30 Nitroglycerin 0.4 mg Q5MINP PRN SL 10/16/24 14:30 Ceftriaxone Sodium 50 ml @ 100 mls/hr DAILY@09 IV 10/16/24 14:30 10/19/24 09:25 100 MLS/HR Diagnostic Test (Pha) 1 strip ACHS 10/16/24 17:00 10/19/24 11:09 1 STRIP Insulin Human Regular ACHS SC 10/16/24 17:00 Dextrose 50 ml UD PRN IV 10/16/24 14:30 Losartan Potassium 100 mg DAILY PO 10/17/24 10:00 10/17/24 10:58 100 MG Hydrochlorothiazide 12.5 mg DAILY PO 10/17/24 10:00 10/18/24 09:52 12.5 MG Pantoprazole Sodium 40 mg DAILY IV 10/16/24 15:00 10/19/24 09:25 40 MG Polyethylene Glycol 17 gm DAILY PO 10/17/24 10:00 10/18/24 09:51 17 GM Sennosides 8.6 mg HS PO 10/16/24 22:00 10/18/24 21:55 8.6 MG Patient Own Medication 1 tab DAILY PO 10/17/24 10:00 UNV Nifedipine 60 mg DAILY PO 10/17/24 10:00 10/17/24 10:57 60 MG Acetaminophen 650 mg Q4HP PRN PO 10/16/24 17:00 Hydralazine HCl 10 mg Q6HP PRN IV 10/17/24 02:45 10/19/24 12:21 10 MG Alprazolam 1 mg TID PO 10/18/24 14:00 10/18/24 21:55 1 MG Sodium Chloride 1,000 ml @ 75 mls/hr [id number] IV 10/18/24 13:30 10/19/24 06:20 75 MLS/HR Laboratory Results Laboratory Tests 10/19/24 05:50 Chemistry Test 10/19/24 05:50 Albumin 4.1 g/dL (3.2-4.8) Calcium Level 10.0 mg/dL (8.7-10.4) Total Protein 6.7 g/dL (5.7-8.2) Coagulation Test 10/19/24 05:50 Prothrombin Time 10.9 sec (9.3-11.8) Prothrombin Time INR 1.03 (0.9-1.15) Activated Partial Thromboplast Time 28.2 SEC (24.5-34.5) LFT Test 10/19/24 05:50 Alanine Aminotransferase (ALT) 110 U/L (7-40) H Alkaline Phosphatase 113 U/L (46-116) Aspartate Amino Transferase (AST) 56 U/L (<34) H Total Bilirubin 0.5 mg/dL (0.2-1.0) Urinalysis Test 10/16/24 12:05 Urine Color Colorless (Yellow) Urine Clarity Clear (Clear) Urine pH 8.0 (5.0-9.0) Urine Specific [place] 1.009 (1.001-1.035) Urine Protein Negative (Negative) Urine Ketones Negative (Negative) Urine Blood Negative /uL (Negative) Urine Nitrite Negative (Negative) Urine Bilirubin Negative (Negative) Urine Urobilinogen Normal mg/dL (Negative) Urine Leukocyte Esterase Trace /uL (Negative) Urine RBC 1 /hpf (0 - 4) Urine Microscopic WBC 2 /HPF (0-5) Urine Squamous Epithelial Cells Few /hpf (<5) Urine Bacteria None seen /hpf (None Seen) Urine Glucose Normal mg/dL (Normal) Microbiology Microbiology Date/Time Source Procedure Growth Status 10/16/24 11:39 Blood Blood Culture - Preliminary NO GROWTH AFTER 72 HOURS OF INCUBATION. Resulted Labs and/or images reviewed: Labs reviewed by me, Image(s) reviewed by me Assessment/Plan Assessment/Plan Syncope unknown etiology: CT head negative carotid ultrasound negative chest x- ray negative neurology consult, echo 60 % ejection fraction cardiology consult. Epigastric abdominal pain six-months: CT abdomen pelvis without contrast negative: Consult by GI Dr. José Miguel Randall, getting EGD today Elevated liver enzymes History of cholecystectomy Hypertension Diabetes Blood cultures negative Plan discussed with: Patient Date of Service: Oct 19, 2024 Billing Provider: MARTHA DAVIS MD Common Visit Codes: [id number] INP/OBS CARE(HIGH) MARTHA DAVIS MD Oct 19, 2024 14:42
--- NOTE | 2024-10-19 14:42 | DVHOP2 ---
Operative Report DATE OF OPERATION: 10/19/24 PROCEDURE: Upper Endoscopy with biopsy. PREOPERATIVE INDICATION: The patient is a 64 -year-old female undergoing endoscopy for epigastric pain POSTOPERATIVE DIAGNOSES: 1. Mild gastritis involving the antrum and body of the stomach but no ulcers and no bleeding 2. Slightly irregular squamocolumnar junction but no significant erosive esophagitis or hiatal hernia 3. Otherwise normal examination up to the 2nd and 3rd part of the duodenum with good bile drainage active bleeding PROCEDURE PERFORMED BY: Dago Randall GI NURSE: Sera SCOPE: Olympus videoendoscope. ASA CLASS: 2 PREOPERATIVE MEDICATIONS: Versed 3 mg, Fentanyl 75 mcg, Benadryl 50 mg I administered moderate sedation throughout this _7_ minutes procedure. An independent trained observer pushed medications at my direction, and monitored the patient's level of consciousness and physiological status throughout. PROCEDURE IN DETAIL: After obtaining an informed consent, the patient was placed on left lateral decubitus position. The patient was then sedated with the above medications. A bite block was placed between her teeth. The endoscope was then passed through the oropharynx, into the esophagus, and through the stomach and pylorus up to the second and third part of the duodenum. The endoscope was then withdrawn. The 2nd and 3rd part of the duodenal and the duodenal bulb were normal. There was good bile drainage and no bleeding in the upper GI tract The pre-pyloric area antrum and body showed mild gastritis. Gastric biopsies w ere obtained. On retroflexion the fundus and cardia were normal. The endoscope was then withdrawn into the distal esophagus. Patient had a slightly irregular squamocolumnar junction but no significant hiatal hernia and no esophagitis GE junction biopsies were obtained. The remaining distal and proximal esophagus and oropharynx were unremarkable. The patient tolerated the procedure well without difficulty. COMPLICATIONS : None SPECIMENS: Duodenal biopsies Gastric biopsies GE junction biopsies DISPOSITION: Transfer back to the floor Stable PLAN: 1. Await for biopsy result 2. Will place pt on Protonix 40 mg p.o. daily 3. DC aspirin NSAIDs smoking alcohol 4. I will order MRCP to rule out any CBD stone or sludge DAGO RANDALL MD Oct 19, 2024 14:42
--- NOTE | 2024-10-19 22:58 | DVHPN2 ---
Progress Note - Dictate Date Seen: Oct 19, 2024 Medical Necessity Reason Pt with a Central, PICC or Fol: No Subjective Patient was seen and evaluated in follow up. Patient underwent EGD which showed mild gastritis involving the antrum and body of the stomach but no ulcers and no bleeding. Slightly irregular squamocolumnar junction but no significant erosive esophagitis or hiatal hernia. MRCP was canceled as right upper quadrant ultrasound shows no biliary ductal dilatation and no evidence of stones. CBC is unremarkable. vital signs Vital Sign Date Time Temp Pulse Resp B/P (MAP) Pulse Ox O2 Delivery O2 Flow Rate FiO2 10/19/24 21:00 98.3 68 19 150/76 (100) 99 98.3 10/19/24 20:00 Room Air* 0 21 Total Intake and Output 10/18/24 10/18/24 10/19/24 15:00 23:00 07:00 Intake Total 50 ml 450 ml 1000 ml Balance 50 ml 450 ml 1000 ml medications Current Medications Medications Dose Ordered Sig/Anna Route Start Time Stop Time Status Last Admin Dose Admin Ondansetron HCl 4 mg Q4HP PRN IV 10/16/24 14:30 Nitroglycerin 0.4 mg Q5MINP PRN SL 10/16/24 14:30 Ceftriaxone Sodium 50 ml @ 100 mls/hr DAILY@09 IV 10/16/24 14:30 10/19/24 09:25 100 MLS/HR Losartan Potassium 100 mg DAILY PO 10/17/24 10:00 10/17/24 10:58 100 MG Hydrochlorothiazide 12.5 mg DAILY PO 10/17/24 10:00 10/18/24 09:52 12.5 MG Pantoprazole Sodium 40 mg DAILY IV 10/16/24 15:00 10/19/24 09:25 40 MG Polyethylene Glycol 17 gm DAILY PO 10/17/24 10:00 10/18/24 09:51 17 GM Sennosides 8.6 mg HS PO 10/16/24 22:00 10/18/24 21:55 8.6 MG Patient Own Medication 1 tab DAILY PO 10/17/24 10:00 UNV Nifedipine 60 mg DAILY PO 10/17/24 10:00 10/17/24 10:57 60 MG Acetaminophen 650 mg Q4HP PRN PO 10/16/24 17:00 Hydralazine HCl 10 mg Q6HP PRN IV 10/17/24 02:45 10/19/24 12:21 10 MG Alprazolam 1 mg TID PO 10/18/24 14:00 10/18/24 21:55 1 MG Sodium Chloride 1,000 ml @ 75 mls/hr [id number] IV 10/18/24 13:30 10/19/24 16:10 75 MLS/HR Sucralfate 1 gm BID@0600,2200 PO 10/19/24 22:00 objective GENERAL: Alert and oriented x 3. No acute distress. EYES: PERRL, EOMI. Anicteric. HENT: Moist mucous membranes. LUNGS: Clear to auscultation bilaterally. CARDIOVASCULAR: Regular rate and rhythm. ABDOMEN: Soft, epigastric TTP. EXTREMITIES: No edema. NEUROLOGIC: No focal neurological deficits. SKIN: Warm, dry. laboratory and microbiology Laboratory Tests 10/19/24 05:50 Test 10/19/24 05:50 Range/Units Serum Glucose 79 74-106 mg/dL Problem List Syncope and collapse. Hypertension. Diabetes type 2. History of seizures. Assessment/Plan Continued all current supportive medical care. IV antibiotics as ordered. IV Hydralazine for SBP >150. Losartan, Nifedipine. Nitro SL. GI prophylactics. Additional plan as per the hospital course. Dietary Evaluation Review Comments: 1) Continue Senokot and Miralax 2) Initiate Glucerna qd 3) Encourage optimal PO intake 4) Continue to monitor I&O, labs, and skin integrity Expected Outcomes/Goals: 1) appetite and labs to improve 2) GI symptoms to resolve 3) f/u in 3-5 days Plan discussed with: Patient DOMI CLINTON MD Oct 19, 2024 22:58
[2024-10-19] MEDS: SUCRALFATE 1 GM/10 ML ORAL SUSP PO SCH (23:39)
[2024-10-20 01:00] VITALS: BP 147/77; PULSE 61; RESP 20; TEMP 98.2; O2SAT 99
[2024-10-20 04:57] VITALS: BP 152/81; PULSE 60; RESP 20; TEMP 97.8; O2SAT 97
[2024-10-20 05:45] VITALS: BP 126/54; PULSE 89
[2024-10-20 08:34] VITALS: BP 169/72; PULSE 57; RESP 16; TEMP 98.2; O2SAT 98
[2024-10-20 13:00] VITALS: BP 113/63; PULSE 75; RESP 16; TEMP 98.5; O2SAT 98
--- NOTE | 2024-10-20 13:18 | DVHPN2 ---
Reviewed: Care Plan, H&P, Labs, Medications, Previous Orders, Radiology Changes from previous H/P or p: No Changes Gastrointestinal: Abdominal Pain Objective Vitals Vital Signs Date Time Temp Pulse Resp B/P (MAP) Pulse Ox O2 Delivery O2 Flow Rate FiO2 10/20/24 11:00 132/68 10/20/24 08:34 98.2 57 16 98 98.2 10/20/24 08:15 Room Air* 0 21 Intake/Output Intake and Output 10/20/24 07:00 Intake Total 1015 ml Balance 1015 ml Intake Oral 430 ml IV Total 585 ml # Voids 6 # Bowel Movements 1 Medications Current Medications Medications Dose Ordered Sig/Anna Route Start Time Stop Time Status Last Admin Dose Admin Ondansetron HCl 4 mg Q4HP PRN IV 10/16/24 14:30 Nitroglycerin 0.4 mg Q5MINP PRN SL 10/16/24 14:30 Ceftriaxone Sodium 50 ml @ 100 mls/hr DAILY@09 IV 10/16/24 14:30 10/20/24 10:10 100 MLS/HR Losartan Potassium 100 mg DAILY PO 10/17/24 10:00 10/20/24 11:00 100 MG Hydrochlorothiazide 12.5 mg DAILY PO 10/17/24 10:00 10/20/24 11:00 12.5 MG Pantoprazole Sodium 40 mg DAILY IV 10/16/24 15:00 10/20/24 10:10 40 MG Polyethylene Glycol 17 gm DAILY PO 10/17/24 10:00 10/20/24 10:10 17 GM Sennosides 8.6 mg HS PO 10/16/24 22:00 10/19/24 23:39 8.6 MG Patient Own Medication 1 tab DAILY PO 10/17/24 10:00 UNV Nifedipine 60 mg DAILY PO 10/17/24 10:00 10/20/24 10:59 60 MG Acetaminophen 650 mg Q4HP PRN PO 10/16/24 17:00 Hydralazine HCl 10 mg Q6HP PRN IV 10/17/24 02:45 10/20/24 08:37 10 MG Alprazolam 1 mg TID PO 10/18/24 14:00 10/19/24 23:39 1 MG Sodium Chloride 1,000 ml @ 75 mls/hr [id number] IV 10/18/24 13:30 10/19/24 16:10 75 MLS/HR Sucralfate 1 gm BID@0600,2200 PO 10/19/24 22:00 10/20/24 05:44 1 GM Laboratory Results Laboratory Tests 10/19/24 05:50 Urinalysis Test 10/16/24 12:05 Urine Color Colorless (Yellow) Urine Clarity Clear (Clear) Urine pH 8.0 (5.0-9.0) Urine Specific [place] 1.009 (1.001-1.035) Urine Protein Negative (Negative) Urine Ketones Negative (Negative) Urine Blood Negative /uL (Negative) Urine Nitrite Negative (Negative) Urine Bilirubin Negative (Negative) Urine Urobilinogen Normal mg/dL (Negative) Urine Leukocyte Esterase Trace /uL (Negative) Urine RBC 1 /hpf (0 - 4) Urine Microscopic WBC 2 /HPF (0-5) Urine Squamous Epithelial Cells Few /hpf (<5) Urine Bacteria None seen /hpf (None Seen) Urine Glucose Normal mg/dL (Normal) Microbiology Microbiology Date/Time Source Procedure Growth Status 10/16/24 11:39 Blood Blood Culture - Preliminary NO GROWTH AFTER 72 HOURS OF INCUBATION. Resulted Labs and/or images reviewed: Labs reviewed by me, Image(s) reviewed by me Assessment/Plan Assessment/Plan Syncope resolved: CT head negative carotid ultrasound negative chest x-ray negative neurology consult, echo 60 % ejection fraction cardiology consult. Epigastric abdominal pain six-months: CT abdomen pelvis without contrast negative: Mild gastritis and slightly irregular squamocolumnar junction Elevated liver enzymes History of cholecystectomy Hypertension Diabetes Blood cultures negative Plan discussed with: Patient Date of Service: Oct 20, 2024 Billing Provider: MARTHA DAVIS MD Common Visit Codes: [id number] INP/OBS CARE(HIGH) MARTHA DAVIS MD Oct 20, 2024 13:18
[2024-10-20] MEDS ORDERED: SUCR1TAB31 PO (13:20)
[2024-10-20] MEDS ORDERED: PANT40T PO (13:20)
--- NOTE | 2024-10-20 13:24 | DVHDS2 ---
Discharge Summary Date of Admission Oct 16, 2024 at 14:16 Date of Discharge: Oct 20, 2024 Admitting Diagnosis Syncope loss of weight Wounds: EGD Labs/Diagnostic Data: Laboratory Results Test 10/19/24 11:03 10/19/24 05:50 10/18/24 11:24 10/17/24 06:10 POC Glucose 74 mg/dl (70-106) White Blood Count 6.3 10^3/uL (4.4-10.8) Red Blood Count 4.27 10^6/uL (4.0-5.20) Hemoglobin 12.6 g/dL (12.2-16.2) Hematocrit 36.0 % (36.0-46.0) Mean Corpuscular Volume 84.2 fL (80.0-100.0) Mean Corpuscular Hemoglobin 29.5 pg (28.0-32.0) Mean Corpuscular Hemoglobin Concent 35.1 g/dL (32.0-36.0) Red Cell Distribution Width 13.5 % (11.8-14.3) Platelet Count 295 10^3/uL (140-450) Mean Platelet Volume 8.1 fL (6.9-10.8) Neutrophils (%) (Auto) 41.8 % (37.0-80.0) Lymphocytes (%) (Auto) 45.7 % (10.0-50.0) Monocytes (%) (Auto) 9.2 % (0.0-12.0) Eosinophils (%) (Auto) 2.9 % (0.0-7.0) Basophils (%) (Auto) 0.4 % (0.0-2.0) Neutrophils # (Auto) 2.6 10 ^3/uL (1.6-8.6) Lymphocytes # (Auto) 2.9 10 ^3/uL (0.4-5.4) Monocytes # (Auto) 0.6 10 ^3/uL (0-1.3) Eosinophils # (Auto) 0.2 10 ^3/uL (0-0.8) Basophils # (Auto) 0 10 ^3/uL (0-0.2) Nucleated Red Blood Cells 0.1 % Prothrombin Time 10.9 sec (9.3-11.8) Prothrombin Time INR 1.03 (0.9-1.15) Activated Partial Thromboplast Time 28.2 SEC (24.5-34.5) Sodium Level 143 mmol/L (136-145) Potassium Level 3.6 mmol/L (3.5-5.1) Chloride Level 105 mmol/L (98-107) Carbon Dioxide Level 29 mmol/L (20-31) Anion Gap 9 (5-15) Blood Urea Nitrogen 19 mg/dL (9-23) Creatinine 1.02 mg/dL (0.550-1.02) Glomerular Filtration Rate Calc 61 mL/min (>90) BUN/Creatinine Ratio 18.6 (10.0-20.0) Serum Glucose 79 mg/dL (74-106) Calcium Level 10.0 mg/dL (8.7-10.4) Total Bilirubin 0.5 mg/dL (0.2-1.0) Aspartate Amino Transferase (AST) 56 U/L (<34) Alanine Aminotransferase (ALT) 110 U/L (7-40) Alkaline Phosphatase 113 U/L (46-116) Total Protein 6.7 g/dL (5.7-8.2) Albumin 4.1 g/dL (3.2-4.8) Lipase 33 U/L (12-53) Magnesium Level 1.9 mg/dL (1.6-2.6) Triglycerides Level 108 mg/dL (< 150) Cholesterol Level 175 mg/dL (< 200) LDL Cholesterol 120 mg/dL (< 100) HDL Cholesterol 45 mg/dL (40-59) Thyroid Stimulating Hormone (TSH) 1.40 uIU/mL (0.55-4.78) Hepatitis B Surface Antigen Negative (Negative) Hepatitis C Antibody Negative (Negative) Test 10/16/24 15:42 10/16/24 15:24 10/16/24 12:05 10/16/24 11:39 Influenza Type A Antigen Negative (Negative) Influenza Type B Antigen Negative (Negative) Troponin I High Sensitivity 5 ng/L (</=34) Urine Color Colorless (Yellow) Urine Clarity Clear (Clear) Urine pH 8.0 (5.0-9.0) Urine Specific [place] 1.009 (1.001-1.035) Urine Protein Negative (Negative) Urine Ketones Negative (Negative) Urine Blood Negative /uL (Negative) Urine Nitrite Negative (Negative) Urine Bilirubin Negative (Negative) Urine Urobilinogen Normal mg/dL (Negative) Urine Leukocyte Esterase Trace /uL (Negative) Urine RBC 1 /hpf (0 - 4) Urine Microscopic WBC 2 /HPF (0-5) Urine Squamous Epithelial Cells Few /hpf (<5) Urine Bacteria None seen /hpf (None Seen) Urine Glucose Normal mg/dL (Normal) Urine Opiates Screen Neg (NEGATIVE) Urine Fentanyl Screen Neg (NEGATIVE) Urine Barbiturates Screen Neg (NEGATIVE) Urine Phencyclidine Screen Neg (NEGATIVE) Urine Amphetamines Screen Neg (NEGATIVE) Urine Benzodiazepines Screen Neg (NEGATIVE) Urine Cocaine Screen Neg (NEGATIVE) Urine Cannabinoids Screen Neg (NEGATIVE) Hemoglobin A1c 5.7 % A1C (<5.7) Lactic Acid Level 1.3 mmol/L (0.4-2.0) Other Laboratory Tests 10/19/24 05:50 Brief Hx & Hospital Course: 84-year-old female admitted for syncopal episode and epigastric abdominal pain for the last six [address]. [address] head negative carotid ultrasound negative chest x- ray negative neurology consult by Dr. Reese echo 60 percent ejection fraction cardiology consult appreciated epigastric abdominal pain at [place] by GI Dr. José Miguel Randall EGD showed mild gastritis and slightly irregular squamocolumnar junction. CT abdomen pelvis without contrast was negative slightly elevated liver enzymes patient has a history of hypertension diabetes blood cultures negative. At the time of discharge patient condition stable stable vital signs eating lunch. Family at the bedside discharged home on pantoprazole and Carafate she will follow up with the primary Dr. also seen by Cardiology Dr. Sergio Barragan Consults/Reason for consult GI Dr. José Miguel Randall Operations or Procedures EGD Condition at Discharge: Fair Final Diagnosis/Problems List Syncope resolved: CT head negative carotid ultrasound negative chest x-ray negative neurology consult, echo 60 % ejection fraction cardiology consult. Epigastric abdominal pain six-months: CT abdomen pelvis without contrast negative: Mild gastritis and slightly irregular squamocolumnar junction Elevated liver enzymes History of cholecystectomy Hypertension Diabetes Blood cultures negative Discharge Disposition: Home Discharge Instruct/Medications Diet: Cardiac 2g Na,low cholest Activity: Light activity Follow Up/Referral: Follow up with the primary Dr Medications: Pantoprazole Carafate [facility] (Time taken for discharge summary 35 minutes) Discharge Statement: "Patient was advised to return to the ER or call 911 if any headaches, dizziness, shortness of breath, chest pain, abdominal pain, bleeding, fevers, or worsening of medical condition. Patient was counseled about treatment plan, medications, possible side effects, patientverbalized understanding. All questions were answered to the best of my ability. This discharge took greater then 30 minutes in planning, reviewing documentation, counseling the patient, and discussing with other team members." ASSESSMENT ASSESSMENT Hospital Course Improved Assessment Syncope resolved: CT head negative carotid ultrasound negative chest x-ray negative neurology consult, echo 60 % ejection fraction cardiology consult. Epigastric abdominal pain six-months: CT abdomen pelvis without contrast negative: Mild gastritis and slightly irregular squamocolumnar junction Elevated liver enzymes History of cholecystectomy Hypertension Diabetes Blood cultures negative Date of Service: Oct 20, 2024 Billing Provider: MARTHA DAVIS MD Common Visit Codes: [id number] DISCH DAY >30min MARTHA DAVIS MD Oct 20, 2024 13:24
[2024-10-20 14:34] VITALS: BP 132/68
--- NOTE | 2024-10-20 16:35 | DVHPN2 ---
Progress Note - Dictate Date Seen: Oct 20, 2024 (Entry Time of visit 3:00 p.m.) Medical Necessity Reason Pt with a Central, PICC or Fol: No Subjective No new complaints Patient is tolerating diet EGD findings have been reviewed with the patient No further syncopal episodes vital signs Vital Sign Date Time Temp Pulse Resp B/P (MAP) Pulse Ox O2 Delivery O2 Flow Rate FiO2 10/20/24 13:00 98.5 75 16 113/63 (80) 98 98.5 10/20/24 08:15 Room Air* 0 21 Total Intake and Output 10/19/24 10/19/24 10/20/24 15:00 23:00 07:00 Intake Total 10 ml 575 ml 430 ml Balance 10 ml 575 ml 430 ml medications Current Medications Medications Dose Ordered Sig/Anna Route Start Time Stop Time Status Last Admin Dose Admin Ondansetron HCl 4 mg Q4HP PRN IV 10/16/24 14:30 Nitroglycerin 0.4 mg Q5MINP PRN SL 10/16/24 14:30 Ceftriaxone Sodium 50 ml @ 100 mls/hr DAILY@09 IV 10/16/24 14:30 10/20/24 10:10 100 MLS/HR Losartan Potassium 100 mg DAILY PO 10/17/24 10:00 10/20/24 11:00 100 MG Hydrochlorothiazide 12.5 mg DAILY PO 10/17/24 10:00 10/20/24 11:00 12.5 MG Pantoprazole Sodium 40 mg DAILY IV 10/16/24 15:00 10/20/24 10:10 40 MG Polyethylene Glycol 17 gm DAILY PO 10/17/24 10:00 10/20/24 10:10 17 GM Sennosides 8.6 mg HS PO 10/16/24 22:00 10/19/24 23:39 8.6 MG Patient Own Medication 1 tab DAILY PO 10/17/24 10:00 UNV Nifedipine 60 mg DAILY PO 10/17/24 10:00 10/20/24 10:59 60 MG Acetaminophen 650 mg Q4HP PRN PO 10/16/24 17:00 Hydralazine HCl 10 mg Q6HP PRN IV 10/17/24 02:45 10/20/24 08:37 10 MG Alprazolam 1 mg TID PO 10/18/24 14:00 10/19/24 23:39 1 MG Sodium Chloride 1,000 ml @ 75 mls/hr [id number] IV 10/18/24 13:30 10/19/24 16:10 75 MLS/HR Sucralfate 1 gm BID@0600,2200 PO 10/19/24 22:00 10/20/24 05:44 1 GM objective GENERAL: Alert and interactive. No acute distress. HEAD: Head is normocephalic and atraumatic. EYES: EOMI, PERRL. No scleral icterus. No conjunctival injection. ENT: Moist mucous membranes. NECK: Supple, No masses, Full range of motion. RESPIRATORY: No tachypnea. Clear breath sounds bilaterally. No wheezing, rales, rhonchi. CV: Regular rate and rhythm. No murmurs, rubs, or gallops. GI/: Mild epigastric tenderness. No rebound or guarding. INTEGUMENTARY: Warm and dry. No obvious rashes. NEUROLOGIC: Alert and oriented. Face is symmetric. Speech is normal. Moves all extremities equally. laboratory and microbiology Laboratory Tests 10/19/24 05:50 Test 10/19/24 05:50 Range/Units Serum Glucose 79 74-106 mg/dL GB USG IMPRESSION: Prior cholecystectomy without biliary ductal dilatation. Problems(with codes): (1) Gastritis (2) Elevated liver enzymes (3) Epigastric pain (4) Acute chest pain (5) Syncope and collapse (6) Shortness of breath Prognosis PLAN Discharge planning is in progress Patient will get Protonix 40 mg p.o. daily Carafate 1 g p.o. twice a day DC aspirin NSAIDs smoking alcohol Outpatient follow up with GI Services to discuss elective screening colonoscopy Ongoing evaluation with Cardiology and Neurology as an outpatient Dietary Evaluation Review Comments: 1) Continue Senokot and Miralax 2) Initiate Glucerna qd 3) Encourage optimal PO intake 4) Continue to monitor I&O, labs, and skin integrity Expected Outcomes/Goals: 1) appetite and labs to improve 2) GI symptoms to resolve 3) f/u in 3-5 days Plan discussed with: Patient DAGO MERCEDES MD Oct 20, 2024 16:35
--- NOTE | 2024-10-20 23:28 | DVHPN2 ---
Progress Note - Dictate Date Seen: Oct 20, 2024 Medical Necessity Reason Pt with a Central, PICC or Fol: No Subjective Patient was seen and evaluated in follow up. Patient has no new complaints at this time. Patient denies any cardiac symptoms. Patient is cardiac stable for discharge. vital signs Vital Sign Date Time Temp Pulse Resp B/P (MAP) Pulse Ox O2 Delivery O2 Flow Rate FiO2 10/20/24 13:00 98.5 75 16 113/63 (80) 98 98.5 10/20/24 08:15 Room Air* 0 21 Total Intake and Output 10/19/24 10/19/24 10/20/24 15:00 23:00 07:00 Intake Total 10 ml 575 ml 430 ml Balance 10 ml 575 ml 430 ml medications Current Medications Medications Dose Ordered Sig/Anna Route Start Time Stop Time Status Last Admin Dose Admin Patient Own Medication 1 tab DAILY PO 10/17/24 10:00 UNV objective GENERAL: Alert and oriented x 3. No acute distress. EYES: PERRL, EOMI. Anicteric. HENT: Moist mucous membranes. LUNGS: Clear to auscultation bilaterally. CARDIOVASCULAR: Regular rate and rhythm. ABDOMEN: Soft, epigastric TTP. EXTREMITIES: No edema. NEUROLOGIC: No focal neurological deficits. SKIN: Warm, dry. laboratory and microbiology Laboratory Tests 10/19/24 05:50 Test 10/19/24 05:50 Range/Units Serum Glucose 79 74-106 mg/dL Problem List Syncope and collapse. Hypertension. Diabetes type 2. History of seizures. Assessment/Plan Continued all current supportive medical care. IV antibiotics as ordered. IV Hydralazine for SBP >150. Losartan, Nifedipine. GI prophylactics. Additional plan as per the hospital course. Dietary Evaluation Review Comments: 1) Continue Senokot and Miralax 2) Initiate Glucerna qd 3) Encourage optimal PO intake 4) Continue to monitor I&O, labs, and skin integrity Expected Outcomes/Goals: 1) appetite and labs to improve 2) GI symptoms to resolve 3) f/u in 3-5 days Plan discussed with: Patient DOMI CLINTON MD Oct 20, 2024 23:28
== END 2024-10-20 15:45 | disposition home or self-care (01) | DRG 74 ==
LOC: EDBD 10:13 → ER 10:13 → OVERFLOW 14:16 → WEST WING 23:54
PROVIDERS: ADMIT Family Medicine; ATTEND Family Medicine
PROC: 0DB68ZX Excision of Stomach, Via Natural or Artificial Opening Endoscopic, Diagnostic (ICD-10-PCS; 2024-10-19)
PROC: 0DB48ZX Excision of Esophagogastric Junction, Via Natural or Artificial Opening Endoscopic, Diagnostic (ICD-10-PCS; 2024-10-19)
PROC: 0DB98ZX Excision of Duodenum, Via Natural or Artificial Opening Endoscopic, Diagnostic (ICD-10-PCS; principal; 2024-10-19 14:26)
DX: G90.89 Other disorders of autonomic nervous system (principal); E87.0 Hyperosmolality and hypernatremia; N39.0 Urinary tract infection, site not specified; K29.70 Gastritis, unspecified, without bleeding; K59.00 Constipation, unspecified; K44.9 Diaphragmatic hernia without obstruction or gangrene; E11.9 Type 2 diabetes mellitus without complications; I10 Essential (primary) hypertension; Z88.5 Allergy status to narcotic agent; Z90.49 Acquired absence of other specified parts of digestive tract; Z98.891 History of uterine scar from previous surgery; Z79.899 Other long term (current) drug therapy; Z87.11 Personal history of peptic ulcer disease
CPT/HCPCS: 36415; 43239; 70450; 71045; 74176; 76705; 80048; 80053; 80061; 80307; 81001; 82962; 83036; 83605; 83690; 83735; 84443; 84484; 85025; 85610; 85730; 86038; 86803; 86850; 86900; 86901; 87040; 87340; 87804; 93005; 93306; 93886; 96360; 99291; G0378; J2250; J2470